=== PATIENT | female | born 1960 | race Caucasian/White ===

== ENCOUNTER → 2017-01-05 | Outpatient (CLI) | payer MEDICARE ==
--- NOTE | 2017-01-05 16:29 | CT ---
EXAM DESCRIPTION: CTA Runoff CLINICAL HISTORY: 56 years, Female, PAIN bilateral lower extremity pain and suspected claudication COMPARISON: None TECHNIQUE: Rapid bolus administration of nonionicIV contrast was performed with thin-section axial scanning of the lower abdomen, pelvis, and lower extremities was performed in a dynamic fashion. Reconstructed multiplanar and three dimensional MIP and VRT images created on a separate dedicated workstation were reviewed along with the source axial images and stored in the patient's medical record. This exam was performed according to our departmental dose-optimization program, which includes automated exposure control, adjustment of the mA and/or kV according to patient size and/or use of iterative reconstruction technique. FINDINGS: Thin section CTA of the lower abdomen pelvis and lower extremities was performed. Moderate atherosclerosis is apparent. The examination was be done just below the origin of the renal arteries with opacification satisfactorily of both kidneys but the origin of each renal artery or the mesenteric vessels not evaluated. A patent inferior mesenteric artery is present. A retroverted uterus within the pelvis is noted. Moderate surface atherosclerosis and calcification is present without aortic aneurysm both common iliac arteries and both common iliac bifurcations and both external iliac and common femoral arteries and bifurcations are widely patent without significant stenosis. Both internal iliac arteries fill well into the posterior pelvis and gluteal region. On the right superficial femoral artery and popliteal artery is widely patent to below the knee. Posterior tibial artery is patent throughout its course to the level of the plantar arch and the peroneal artery can be followed to just above the ankle mortise. A patent but very diminutive posterior tibial artery is poorly opacified but present to the level of the dorsalis pedis artery. On the left, the superficial femoral artery is patent throughout its course as well as the popliteal artery to the popliteal trifurcation with a patent posterior tibial artery to the plantar arch level and a diminutive but patent anterior tibial artery to the level of the dorsal arch of below the ankle mortise. The coronal and sagittal reformatted images are suboptimal secondary to stair stepping artifact with no additional gross abnormalities noted. IMPRESSION: 1. Moderate surface atherosclerosis and calcification involving the aorta and pelvic vessels with very little atherosclerotic calcification noted below the level of the groin on each side. 2. Nonvisualization of the renal artery origins or mesenteric artery origins other than a patent diminutive inferior mesenteric artery. 3. Patent vessels in both lower extremities to the level of the dorsal and plantar arch is with very diminutive distal anterior tibial artery and dorsalis pedis arteries on each side but patency is present and noted without areas of occlusion or severe stenosis 4. The common iliac and external iliac and femoral vessels as well as each popliteal artery and each posterior tibial artery appear widely patent. Electronically signed by: Eron Rousseau MD 01/05/2017 4:28 PM CDT
== END | disposition home or self-care (01) ==
LOC: CT 10:37
PROVIDERS: ATTEND Family Medicine
DX: I70.223 Atherosclerosis of native arteries of extremities with rest pain, bilateral legs (principal)

== ENCOUNTER 2017-04-22 18:16 | Emergency (ER) | payer MEDICARE ==
[2017-04-22] MEDS ORDERED: NITROGLYCERIN 0.4 MG 25 EA TAB SL ONE (18:24)
[2017-04-22] MEDS ORDERED: ASPIRIN TABLET 325 MG TAB PO ONE (18:24)
[2017-04-22] MEDS ORDERED: SODIUM CHLORIDE 0.9% (FLUSH) 10 ML SYG IV PRN (18:24)
[2017-04-22] MEDS ORDERED: SODIUM CHLORIDE 0.9% 1000ML 1,000 ML IVS ONE (18:59)
[2017-04-22] MEDS ORDERED: PANTOPRAZOLE SODIUM IV 40 MG VIAL IV ONE (19:08)
[2017-04-22] MEDS ORDERED: ALUM & MAG HYDROX-SIMETHICONE 30 ML, LIDOCAINE VISCOUS 2% 15 ML PO ONE ×2 (19:08)
[2017-04-22] MEDS ORDERED: IPRATROPIUM/ALBUTEROL 3 ML VIAL NEB ONE (19:10)
--- NOTE | 2017-04-22 19:11 | ED.PDOC ---
History of Present Illness - General Chief Complaint: Chest Pain/IL Stated Complaint: short of breath chest discomfort Time Seen by Provider: 04/22/17 18:21 Source: patient Exam Limitations: no limitations - History of Present Illness Initial Comments: Susan Arevalo 57 y/o female stated she had been having sharp thoracic pain the last 2 days then this afternoon while resting at home she had sharp stabbing pain epigastrium with sob,got sweaty no n/v,no dizziness. Timing/Duration: 1-3 hours Severity: moderate Location: epigastric Activities at Onset: rest Prior Chest Pain/Cardiac Workup: no prior cardiac workup Improving Factors: nothing Worsening Factors: nothing Nitro Today/Relief: 0.4 mg x 1, provided by ED Aspirin Treatment Today: 325 mg x 1, provided by ED Associated Symptoms: other - see hpi Allergies/Adverse Reactions: Allergies Fluconazole [From Diflucan] Allergy (Verified 04/22/17 18:34) Levofloxacin [From Levaquin] Allergy (Verified 04/22/17 18:34) Penicillin G Allergy (Verified 04/22/17 18:34) Home Medications: Ambulatory Orders HYDROcodone 10MG/APAP 325MG [[place] 10/325] 1 ea PO Q4H 10/31/13 Pantoprazole Tablet [Protonix] 40 mg PO ACBK 03/09/15 Albuterol Sulfate Nebs [Proventil Nebs] 2.5 mg INH TID #100 vial 03/11/15 Azithromycin Tab [Zithromax] 250 mg PO QD #5 tab 03/11/15 Tiotropium [place] Monohydrate [Spiriva Handihaler] 1 puff IN DAILY #1 cap 03/11 predniSONE [Prednisone] 10 mg PO QAM #7 tab 03/11/15 Sucralfate Tab [Carafate Tab] 1 gm PO Q6HRS #120 tab 04/22/17 Review of Systems - Review of Systems Constitutional: States: no symptoms reported EENTM: States: no symptoms reported Respiratory: States: see HPI Cardiology: States: see HPI Gastrointestinal/Abdominal: States: no symptoms reported Musculoskeletal: States: no symptoms reported Skin: States: no symptoms reported Neurological: States: no symptoms reported Past Medical History (General) - Patient Medical History Hx Seizures: No Hx Stroke: No Hx Asthma: No Hx of COPD: Yes Hx Cardiac Disorders: Yes Hx Congestive Heart Failure: No Hx Pacemaker: No Hx Hypertension: No Hx Diabetes: No Hx Gastroesophageal Reflux: Yes Hx MRSA: No Hx Other PMH: Yes - gastric ulcer Surgical History: cholecystectomy, other - gastic surgery for gastric ulcer - Vaccination History Hx Tetanus, Diphtheria Vaccination: No Hx Influenza Vaccination: Yes Hx Pneumococcal Vaccination: No - Social History Hx Tobacco Use: Yes Hx Alcohol Use: No Hx Substance Use: No Hx Physical Abuse: No Hx Emotional Abuse: No - Female History Patient is a Female of Child Bearing Age (10 -59 yrs old): No Patient : No Family Medical History - Family History Father Living Status: Age at (years of age): 61 Cause of : Lung Disease H2S gas Mother Age (years): 73 Living Status: Still Living Hx Family Hypertension: Yes Hx Family Diabetes: Yes Physical Exam - Physical Exam General Appearance: Alert, Anxious, No apparent distress Eyes, Ears, Nose, Throat Exam: PERRL/EOMI, normal ENT inspection, pharynx normal Neck: non-tender, full range of motion, supple Respiratory: chest non-tender, no respiratory distress, no accessory muscle use , wheezing Cardiovascular/Chest: normal peripheral pulses, regular rate, rhythm, no murmur Peripheral Pulses: radial,right: 2+, radial,left: 2+ Gastrointestinal/Abdominal: normal bowel sounds, non tender, soft, no organomegaly Extremity: normal range of motion, non-tender, no calf tenderness, pedal edema - +1 both legs Neurologic: alert, normal mood/affect, oriented x 3 Skin Exam: normal color, warm/dry Lymphatic: no adenopathy Progress - Progress Progress: 04/22/17 21:13 Last Vital Signs Temp 97.9 F 04/22/17 18:27 Pulse 89 04/22/17 20:40 Resp 18 04/22/17 20:40 BP 106/71 04/22/17 18:27 Pulse Ox 96 04/22/17 20:40 - Results/Orders Results/Orders: Laboratory Tests 04/22/17 04/22/17 04/22/17 18:29 18:29 19:11 WBC 7.3 RBC 5.17 Hgb 17.9 H Hct 51.8 H MCV 100.1 H MCH 34.6 H MCHC 34.5 RDW 13.1 Plt Count 190 MPV 7.4 Absolute Neuts (auto) 5.30 Absolute Lymphs (auto) 1.00 Absolute Monos (auto) 0.80 Absolute Eos (auto) 0.10 Absolute Basos (auto) 0.10 Neutrophils % 73.2 Lymphocytes % 14.0 L Monocytes % 11.3 H Eosinophils % 0.8 L Basophils % 0.7 PT 12.2 INR 1.080 PTT (SP) 34.6 D-Dimer, Quantitative < 200 Sodium 127 L Potassium 3.1 L Chloride 87 L Carbon Dioxide 30 Anion Gap 13.1 BUN 10 Creatinine 0.59 L BUN/Creatinine Ratio 16.9 Random Glucose 115 H Serum Osmolality 255.2 L Calcium 9.0 Magnesium 1.8 Total Bilirubin 0.4 Direct Bilirubin < 0.1 Indirect Bilirubin 0.3 AST 28 ALT 15 Alkaline Phosphatase 73 Creatine Kinase 51 CK-MB (CK-2) 2.0 CK-MB (CK-2) % Not Reportable Troponin I < 0.02 B-Natriuretic Peptide 6.3 Serum Total Protein 7.2 Albumin 4.2 Lipase 24 chest pains almost gone and discuss hospital admission that no telemetry bed here that she needs to be transferred to [facility] but declined to go there and wants to follow up with her primary Md in am 04/23/2017 - EKG/XRAY/CT EKG: Sinus Comments: HR-87;right atrial enlargement XRAY: chest - no acute abnormalities - Additional EKG/XRAY/Consults EKG #2: Sinus Comments: heart rate-83 Departure - Departure Clinical Impression: Chest pain Qualifiers: Chest pain type: unspecified Qualified Code(s): R07.9 - Chest pain, unspecified Time of Disposition: 23:48 Disposition: Discharge to Home or Self Care Condition: Fair Departure Forms: ED Discharge - Pt. Copy, Patient Portal Self Enrollment Instructions: DI for Chest Pain Referrals: Richard Dasilva MD [Primary Care Provider] - 1-2 Weeks Prescriptions: Sucralfate Tab [Carafate Tab] 1 gm PO Q6HRS #120 tab Home Medications: Ambulatory Orders HYDROcodone 10MG/APAP 325MG [[place] 10/325] 1 ea PO Q4H 10/31/13 Pantoprazole Tablet [Protonix] 40 mg PO ACBK 03/09/15 Albuterol Sulfate Nebs [Proventil Nebs] 2.5 mg INH TID #100 vial 03/11/15 Azithromycin Tab [Zithromax] 250 mg PO QD #5 tab 03/11/15 Tiotropium [place] Monohydrate [Spiriva Handihaler] 1 puff IN DAILY #1 cap 03/11 predniSONE [Prednisone] 10 mg PO QAM #7 tab 03/11/15 Sucralfate Tab [Carafate Tab] 1 gm PO Q6HRS #120 tab 04/22/17 Additional Instructions: RETURN TO EMERGENCY ROOM IF SYMPTOMS WORSENS;Follow up with primary md in am
[2017-04-22] MEDS ORDERED: LIDOCAINE HCL 2% (MOUTH-THROAT) 15 ML UD ONE (19:13)
[2017-04-22] MEDS ORDERED: ALUM & MAG HYDROX-SIMETHICONE 30 ML UD ONE (19:16)
--- NOTE | 2017-04-22 20:27 | RAD ---
EXAM DESCRIPTION: Chest,1 View CLINICAL HISTORY: pain COMPARISON: 03/11/2015 FINDINGS: 22 mm mass in the right lung is again seen, not definitely changed. Cardiac silhouette is within normal limits. There is no focal parenchymal or pleural disease. Visualized osseous structures are within normal limits. IMPRESSION: No evidence of acute cardiopulmonary disease. Right lung mass lesion is again seen. 04/22/2017 8:26 PM [employer] D[employer] QUALIFIED
--- NOTE | 2017-04-22 20:28 | RAD ---
EXAM DESCRIPTION: Chest,1 View CLINICAL HISTORY: pain COMPARISON: 03/11/2015 FINDINGS: 22 mm mass in the right lung is again seen, not definitely changed. Cardiac silhouette is within normal limits. There is no focal parenchymal or pleural disease. Visualized osseous structures are within normal limits. IMPRESSION: No evidence of acute cardiopulmonary disease. Right lung mass lesion is again seen. Electronically signed by: Saul Poe 04/22/2017 8:27 PM WEB DEVELOPMENT DIRECTOR
[2017-04-22] MEDS ORDERED: SUCRALFATE 1 GM/10 ML 1 GM UD PO ONE (23:02)
[2017-04-23 00:32] VITALS: O2SAT 94
[2017-04-23 01:26] VITALS: BP 137/94; TEMP 99.2
== END 2017-04-23 00:10 | disposition home or self-care (01) ==
LOC: ER 18:16
DX: R07.9 Chest pain, unspecified (principal); J44.9 Chronic obstructive pulmonary disease, unspecified; K21.9 Gastro-esophageal reflux disease without esophagitis; Z79.899 Other long term (current) drug therapy
CPT/HCPCS: 36415; 71010; 80048; 80076; 82550; 82553; 83690; 83880; 84484; 85025; 85379; 85610; 85730; 93005; 94640; 94760; J7030; J7620

== ENCOUNTER → 2017-11-09 | Outpatient (CLI) | payer MEDICARE | LOC: GMAH 17:26 | PROVIDERS: ATTEND Family Medicine | DX: R50.9 Fever, unspecified (principal) ==

== ENCOUNTER 2018-03-18 12:45 | Inpatient (IN) | payer MEDICARE ==
--- NOTE | 2018-03-18 12:53 | HP ---
SUPERVISING PHYSICIAN: Geo Gonzalez M.D. CHIEF COMPLAINT: Shortness of breath. HISTORY OF PRESENT ILLNESS: This is a 58 year-old female patient who was seen in her primary care physician's office, Dr. Richard Dasilva, approximately 2 weeks ago. She had upper respiratory symptoms. She has a longstanding history of chronic obstructive pulmonary disease. At that time she was treated with Amoxicillin and a prednisone taper. She completed her medications this weekend and on Thursday and Thursday she felt somewhat better, but on Thursday she started feeling very poorly again. She came back to see Dr. Dasilva this morning. Her O2 sats were in the mid 80s, blood pressure 104/60, heart rate 118. She was afebrile but on her CBC she had a 24,800 white count. Chest x- ray showed right perihilar infiltrate. She does also have a history of a pulmonary nodule that has been evaluated but she has opted for no treatment. Dr. Dasilva called me for her admission to the hospital and she is being directly admitted to the Medical/Surgical unit at our hospital. PAST MEDICAL HISTORY: 1. Sleep apnea. 2. Low back pain. 3. Chronic obstructive pulmonary disease. 4. Chronic pain syndrome. 5. Gastroesophageal reflux disease. 6. Pulmonary nodule. 7. Rheumatoid arthritis. PAST SURGICAL HISTORY: Unknown. CURRENT MEDICATIONS: Per the EMR and awaiting verification. ALLERGIES: FLUCONAZOLE, LEVOFLOXACIN AND PENICILLIN G, THE INJECTABLE TYPE. SOCIAL HISTORY: She lives in [place]. She smokes a pack of cigarette per day and has since she was in her teens. She denies any ETOH or illicit drug use. REVIEW OF SYSTEMS: Positive for chills and fever. Negative for weight changes. HEENT: Positive for eye drainage. Negative for ear pain, sore throat or sinus symptoms. RESPIRATORY: Positive for cough, wheezing and shortness of breath. CARDIOVASCULAR: Negative for chest pain, palpitations or tachycardia. GASTROINTESTINAL: Negative for abdominal pain, constipation, diarrhea, nausea or vomiting. GENITOURINARY: Negative for hematuria, dysuria or polyuria. MUSCULOSKELETAL: Negative for arthralgias or myalgias. SKIN: Negative for lesions or rashes. NEUROLOGIC: Negative for headaches, dizziness or seizures. PHYSICAL EXAMINATION: VITAL SIGNS: Temperature 99, heart rate 113, blood pressure 107/73, respiratory rate 19, O2 sat 93% on room air. GENERAL: This is a 58 year-old female patient who looks older than her stated age. She does have a strong tobacco odor on her. HEENT: Normocephalic and atraumatic. Pupils are equal and reactive. Oropharynx is clear. NECK: Supple without mass. RESPIRATORY: Expiratory wheezes throughout. She is diminished at the bases. She does have scattered rhonchi. CHEST: There is equal rise and fall of the chest with inspiration and expiration. She is tachypneic at times. CARDIOVASCULAR: Regular rate and rhythm. She is at times tachycardic. GASTROINTESTINAL: Abdomen is soft, nondistended, non-tender. Bowel sounds are positive. EXTREMITIES: No clubbing, cyanosis or edema. NEUROLOGIC: She is awake, alert and oriented times three but she is very tearful and somewhat depressed. LABORATORY: Labs and films are as per the History of Present Illness. CMP has not been resulted yet. All other labs and films have been reviewed via the EMR. ASSESSMENT: 1. Sepsis related to right perihilar pneumonia most likely community acquired with a leukocytosis of 24,800 and heart rate of 113. She has failed outpatient therapy. 2. Chronic obstructive pulmonary disease with acute exacerbation in a chronic smoker, also failing outpatient therapy. 3. Leukocytosis secondary to #1. 4. Chronic tobacco abuse. 5. Anxiety. 6. History of rheumatoid arthritis on chronic opioid therapy. 7. Gastroesophageal reflux disease. PLAN: We will admit the patient to the hospital under the pneumonia guidelines. She will have aggressive pulmonary hygiene. She will have Mucinex scheduled as well as Xanax for anxiety p.r.n. I have given her a nicotine patch. She will have a PPI for ulcer prophylaxis with Lovenox for DVT prophylaxis. I will restart her home medications as soon as they are verified. We are awaiting the CMP today and I will recheck her labs and chest x-ray in the morning. I will start her on azithromycin and Rocephin per the pneumonia guidelines. She will also be on an IV steroid taper. Will continue to monitor closely and follow as needed. #[id number] [facility]
[2018-03-18] MEDS: AZITHROMYCIN IV 500 MG in SODIUM CHLORIDE 0.9% 250ML 250 ML IVPB SCH (13:10)
[2018-03-18] MEDS ORDERED: ONDANSETRON INJ 4 MG/2 ML VIAL IV PRN (13:11)
[2018-03-18] MEDS ORDERED: ALBUTEROL SULFATE 2.5 MG/3 ML VIAL NEB PRN (13:11)
[2018-03-18] MEDS ORDERED: methylPREDNISolone SODIUM SUC 125 MG/2 ML VIAL IV ONE (13:16)
[2018-03-18] MEDS: IPRATROPIUM/ALBUTEROL 3 ML VIAL INH SCH ×3 (13:47→20:32)
[2018-03-18] MEDS ORDERED: ALPRAZolam 0.25 MG TAB PO PRN (14:04)
[2018-03-18] MEDS ORDERED: SODIUM CHL 0.9% 50ML MIN-BAG+ 50 ML IVPB ONE (14:32)
[2018-03-18] MEDS ORDERED: cefTRIAXone SODIUM 1 GM VIAL ONE (14:32)
[2018-03-18] MEDS: guaiFENesin ER TAB 600 MG TAB PO SCH ×2 (14:42→20:39)
[2018-03-18] MEDS: NICOTINE PATCH 14 MG TD SCH (14:43)
[2018-03-18] MEDS: cefTRIAXone SODIUM 1 GM in SODIUM CHL 0.9% 50ML MIN-BAG+ 50 ML IVPB SCH (14:57)
[2018-03-18] MEDS: IV SET AND CAP CHANGE INJ INJ SCH (14:58)
[2018-03-18] MEDS ORDERED: SODIUM CHLORIDE 0.9% 250ML 250 ML ONE (16:02)
[2018-03-18] MEDS ORDERED: AZITHROMYCIN IV 500 MG VIAL IVPB ONE (16:02)
[2018-03-18] MEDS: HYDROcodone 10MG/APAP 325MG 1 EA TAB PO SCH ×2 (18:11→21:37)
[2018-03-18] MEDS ORDERED: methylPREDNISolone SODIUM SUC 125 MG/2 ML VIAL ONE (19:10)
[2018-03-18] MEDS: ENOXAPARIN SODIUM 40 MG/0.4 ML SYG SUBCU SCH (20:38)
[2018-03-18] MEDS: PREGABALIN 25 MG CAP PO SCH (20:38)
[2018-03-18] MEDS: SODIUM CHLORIDE 0.9% (FLUSH) 10 ML SYG IV SCH (20:39)
[2018-03-18] MEDS: SODIUM CHLORIDE 0.9% (FLUSH) 10 ML SYG IV PRN (21:38)
[2018-03-18] MEDS: methylPREDNISolone SODIUM SUC 125 MG/2 ML VIAL IV SCH (21:38)
[2018-03-19] MEDS: HYDROcodone 10MG/APAP 325MG 1 EA TAB PO SCH ×6 (01:48→22:07)
[2018-03-19] MEDS ORDERED: PANTOPRAZOLE SODIUM IV 40 MG VIAL ONE (04:24)
[2018-03-19] MEDS: SODIUM CHLORIDE 0.9% (FLUSH) 10 ML SYG IV PRN (05:50)
[2018-03-19] MEDS: methylPREDNISolone SODIUM SUC 125 MG/2 ML VIAL IV SCH (05:50)
[2018-03-19] MEDS ORDERED: PANTOPRAZOLE SODIUM IV 40 MG VIAL IV SCH (06:30)
--- NOTE | 2018-03-19 06:49 | RAD ---
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 There is developing right middle lobe opacity consistent with developing pneumonia. Emphysematous changes of the lungs are noted. Heart is within normal limits for size. IMPRESSION: Developing right middle lobe pneumonia. Electronically signed by: Aniket Da Silva 03/19/2018 6:48 AM [facility]
[2018-03-19] MEDS: IPRATROPIUM/ALBUTEROL 3 ML VIAL INH SCH ×4 (07:15→20:48)
[2018-03-19] MEDS: PREGABALIN 25 MG CAP PO SCH ×2 (08:02→20:37)
[2018-03-19] MEDS: NICOTINE PATCH 14 MG TD SCH (08:02)
[2018-03-19] MEDS: SODIUM CHLORIDE 0.9% (FLUSH) 10 ML SYG IV SCH ×2 (08:02→20:37)
[2018-03-19] MEDS: hydroCHLOROthiazide 25 MG TAB PO SCH (08:02)
[2018-03-19] MEDS: guaiFENesin ER TAB 600 MG TAB PO SCH ×2 (08:02→20:37)
[2018-03-19] MEDS ORDERED: SODIUM CHL 0.9% 50ML MIN-BAG+ 50 ML IVPB ONE (13:16)
[2018-03-19] MEDS ORDERED: cefTRIAXone SODIUM 1 GM VIAL ONE (13:16)
[2018-03-19] MEDS: cefTRIAXone SODIUM 1 GM in SODIUM CHL 0.9% 50ML MIN-BAG+ 50 ML IVPB SCH (13:18)
[2018-03-19] MEDS ORDERED: SODIUM CHLORIDE 0.9% 250ML 250 ML ONE (13:54)
[2018-03-19] MEDS ORDERED: AZITHROMYCIN IV 500 MG VIAL IVPB ONE (13:55)
[2018-03-19] MEDS: AZITHROMYCIN IV 500 MG in SODIUM CHLORIDE 0.9% 250ML 250 ML IVPB SCH (14:00)
[2018-03-19] MEDS ORDERED: methylPREDNISolone SODIUM SUC 40 MG/ML VIAL ONE (15:53)
[2018-03-19] MEDS ORDERED: methylPREDNISolone SODIUM SUC 40 MG/ML VIAL IV ONE (18:00)
[2018-03-19] MEDS: KCL 40MEQ/NS 1,000 ML IVS PRN (18:29)
[2018-03-19] MEDS ORDERED: MAGNESIUM SULFATE PREMIX 2GM 2 GM in PREMIX BAG 1 BAG IVPB ONE (18:55)
[2018-03-19] MEDS ORDERED: MAGNESIUM SULFATE PREMIX 2GM 50 ML IVPB ONE (19:07)
[2018-03-19] MEDS: ENOXAPARIN SODIUM 40 MG/0.4 ML SYG SUBCU SCH (20:36)
--- NOTE | 2018-03-19 21:28 | PN ---
DATE: 03/19/18 SUPERVISING PHYSICIAN: Eron Davis M.D. SUBJECTIVE: The patient notes that she is feeling a little bit better today, but she continues to be short of breath with any ambulation efforts. She still continues with a cough and purulent-looking sputum but has been afebrile since admission. No chest pains. No nausea, vomiting or diarrhea. OBJECTIVE: VITAL SIGNS: Temperature 98.4, pulse 100 to 117 with blood pressure 118/74, respirations 18, satting 89% on room air and 91 to 92% on nasal cannula at 2 liters at rest. I's and O's show a negative balance of 360 with 1340 in, 1700 out. Weight 50.4 kg. GENERAL: The patient is sitting on the edge of the bed, appears to be in no acute distress. She is alert. CHEST: Lung sounds are diminished towards the bases but no obvious wheezing, but continues with some very faint rhonchi, more so on the right than the left and more prominent on the lateral posterior aspect. HEART: Regular rate and rhythm. ABDOMEN: Soft, non-tender. Positive bowel sounds. EXTREMITIES: Without any clubbing, cyanosis or edema. NEUROLOGIC: She is alert and oriented times three. LABORATORY: White count 16,900 with hemoglobin 15.1, hematocrit 45.3, platelet count 209,000. Differential did show a left leg shift. Chemistries show a persistent low sodium of 132 and improving potassium at 3.2, creatinine 0.48 but CO2 is elevated at 33 but it has improved from admission. Chloride remains low at 90, BUN 8. Blood sugar 139. Liver functions all showed to be within normal limits. MICROBIOLOGY: Sputum culture is pending. Blood cultures are pending. RADIOLOGY: Chest x-ray this morning per radiology interpretation, 2 view chest , showed developing right middle lobe pneumonia. ASSESSMENT: 1. Sepsis due to right middle lobe pneumonia community acquired with the patient showing a leukocytosis of 24,800 and heart rate of 113 on admission having failed to respond to outpatient treatment therapy. 2. Chronic obstructive pulmonary disease with acute exacerbation in a chronic smoker secondary to developing right lower lobe pneumonia, community acquired having failed to respond to outpatient therapy. 3. Electrolyte imbalance to include both hyponatremia and hypokalemia with slight improvement with fluids. 4. Hypercapnia in a chronic smoker, COPD patient. 5. Leukocytosis secondary to #1 showing improvement. Started on parenteral antibiotics. 6. Chronic tobacco abuse and nicotine addiction. Encouraged to stop smoking. 7. Anxiety. 8. History of rheumatoid arthritis on chronic opioid therapy. 9. Gastroesophageal reflux disease, monitoring. PLAN: Will continue with treatment with antibiotics, including Rocephin and azithromycin. Continue with aggressive pulmonary hygiene. Will await culture results to further target antibiotic therapy. She remains on nicotine patch. She continues on IV fluids. When she is showing better oral intake and and I's and O's are more balanced, will saline lock her at that point. Will plan to repeat labs in the morning to include CBC, BMP as well as chest x-ray. She continues on IV steroids. She was started on 60 mg every 8 hours. This will be decreased to 40 mg every 12 hours with anticipation of starting on p.o. dose of prednisone in the morning. Until the patient is able to transition to outpatient therapy, will continue to monitor and treat as needed. #[id number] [facility]
[2018-03-20] MEDS: HYDROcodone 10MG/APAP 325MG 1 EA TAB PO SCH ×6 (01:57→21:42)
[2018-03-20] MEDS: KCL 40MEQ/NS 1,000 ML IVS PRN (04:18)
[2018-03-20] MEDS ORDERED: PANTOPRAZOLE SODIUM TAB 40 MG PO ONE (04:51)
[2018-03-20] MEDS: PANTOPRAZOLE SODIUM TAB 40 MG PO SCH (07:18)
[2018-03-20] MEDS: IPRATROPIUM/ALBUTEROL 3 ML VIAL INH SCH ×4 (07:40→20:40)
[2018-03-20] MEDS: hydroCHLOROthiazide 25 MG TAB PO SCH (08:58)
[2018-03-20] MEDS: guaiFENesin ER TAB 600 MG TAB PO SCH ×2 (08:58→20:37)
[2018-03-20] MEDS: NICOTINE PATCH 14 MG TD SCH (08:58)
[2018-03-20] MEDS ORDERED: SODIUM CHLORIDE 0.9% (FLUSH) 10 ML SYG IV ONE (10:58)
[2018-03-20] MEDS: predniSONE 20 MG TAB PO SCH (11:38)
[2018-03-20] MEDS ORDERED: SODIUM CHL 0.9% 50ML MIN-BAG+ 50 ML IVPB ONE (14:27)
[2018-03-20] MEDS ORDERED: SODIUM CHLORIDE 0.9% 250ML 250 ML ONE (14:27)
[2018-03-20] MEDS ORDERED: cefTRIAXone SODIUM 1 GM VIAL ONE (14:27)
[2018-03-20] MEDS ORDERED: AZITHROMYCIN IV 500 MG VIAL IVPB ONE (14:28)
[2018-03-20] MEDS: cefTRIAXone SODIUM 1 GM in SODIUM CHL 0.9% 50ML MIN-BAG+ 50 ML IVPB SCH (14:37)
[2018-03-20] MEDS: AZITHROMYCIN IV 500 MG in SODIUM CHLORIDE 0.9% 250ML 250 ML IVPB SCH (15:13)
--- NOTE | 2018-03-20 18:39 | PN ---
DATE: 03/20/18 SUPERVISING PHYSICIAN: Eron Davis M.D. SUBJECTIVE: The patient notes that she has improved a little bit. Continues with some shortness of breath but not wheezing. She has been ambulating, able to ambulate at times without needing oxygen and maintaining O2 saturations at least at 90%. She has had no chest pains, no nausea or vomiting or diarrhea. OBJECTIVE: VITAL SIGNS: She remains afebrile, temperature 98.2, pulse 95, blood pressure 98/67, respirations 18, satting 94% on room air. I's and O's show a positive balance of 520 with 2870 in, 2350 out. Weight 50.8 kg. GENERAL : The patient is alert. She appears to be in no acute distress. CHEST: Lung sounds are fairly clear today, just diminished towards the bases. No wheezing or rhonchi are noted. HEART: Regular rate and rhythm. ABDOMEN: Soft, non- tender. Positive bowel sounds. EXTREMITIES: Without any clubbing, cyanosis or edema. NEUROLOGIC: She is alert and oriented times three. LABORATORY: White count remains elevated at 16,600, although she has been on corticosteroids. Hemoglobin and hematocrit are stable at 14.3 and 43.0 respectively with platelet count 219,000. Differential continues to show a left shift. Chemistries now show normalized potassium at 4.3. Sodium remains at 132, BUN 9, creatinine 0.52, calcium 8.5, magnesium is up to 2.2 after replacement. MICROBIOLOGY: Sputum culture is pending. Blood cultures remain negative at 48 hours. RADIOLOGY: No repeat chest x-ray this morning. ASSESSMENT: 1. Sepsis due to right middle lobe pneumonia community acquired with the patient showing a severe leukocytosis prior to admission at 24,800 and tachycardic at 113 and having failed to respond to previous outpatient treatment measures now showing improvement with parenteral antibiotics and corticosteroids. 2. Chronic obstructive pulmonary disease with acute exacerbation in a chronic smoker with a right lower lobe pneumonia, community acquired having failed to respond to outpatient measures showing improvement with initiation of parenteral antibiotics and corticosteroids, and aggressive pulmonary hygiene. 3. Electrolyte imbalance with both hyponatremia and hypokalemia likely with the patient being chronically hyponatremic as she is on Hydrochlorothiazide with notable hypokalemia now corrected after correcting hypomagnesemia with replacement which has normalized. 4. Hypercapnia in a chronic smoker and COPD patient. 5. Leukocytosis secondary to #1 showing slight improvement but continues to be elevated as the patient remains on corticosteroids and parenteral antibiotics. 6. Chronic tobacco abuse with nicotine addiction, continue to encourage to stop smoking. 7. Anxiety, monitoring. 8. History of rheumatoid arthritis on chronic opioid therapy. Continue to monitor. 9. Gastroesophageal reflux disease, stable and monitoring. PLAN: Will continue with current plan at this point with Rocephin and azithromycin with anticipation of probably discharging tomorrow. Given that the patient is a heavy smoker and has a significant degree of COPD, it would be in her best interest that we keep her at least another 24 hours to allow for more aggressive management as well as transition her to p.o. steroids. Should she show continued clinical improvement, certainly will discharge tomorrow and followup with Dr. Dasilva next week. She is going to be saline locked today and I have transitioned her to p.o. prednisone 40 mg daily. Until she can transition to outpatient management, will continue to monitor and treat as needed. #[id number] [facility]
[2018-03-20] MEDS: ENOXAPARIN SODIUM 40 MG/0.4 ML SYG SUBCU SCH (20:36)
[2018-03-20] MEDS: PREGABALIN 25 MG CAP PO SCH (20:37)
[2018-03-20] MEDS: SODIUM CHLORIDE 0.9% (FLUSH) 10 ML SYG IV SCH (20:37)
[2018-03-21] MEDS: HYDROcodone 10MG/APAP 325MG 1 EA TAB PO SCH ×4 (02:02→13:32)
[2018-03-21] MEDS: PANTOPRAZOLE SODIUM TAB 40 MG PO SCH (06:32)
--- NOTE | 2018-03-21 07:32 | RAD ---
EXAM DESCRIPTION: AP view of the chest CLINICAL HISTORY:58 years Female, pneumonia Comparison: March 19, 2018 5:53 AM FINDINGS: Stable right lower lobe nodular density, likely benign. Persistent alveolar opacities in the middle lobe consistent with pneumonia. The left lung is clear with no pleural abnormalities. Cardiac silhouette is normal in size. IMPRESSION: Right lower lobe pneumonia. No significant change from prior exam. Electronically signed by: Luis Carlos Valle DO 03/21/2018 7:31 AM [facility]
[2018-03-21] MEDS: IPRATROPIUM/ALBUTEROL 3 ML VIAL INH SCH ×2 (08:25→12:24)
[2018-03-21] MEDS: NICOTINE PATCH 14 MG TD SCH (08:36)
[2018-03-21] MEDS: guaiFENesin ER TAB 600 MG TAB PO SCH (08:36)
[2018-03-21] MEDS: hydroCHLOROthiazide 25 MG TAB PO SCH (08:36)
[2018-03-21] MEDS: predniSONE 20 MG TAB PO SCH (08:37)
[2018-03-21] MEDS: SODIUM CHLORIDE 0.9% (FLUSH) 10 ML SYG IV SCH (08:48)
[2018-03-21] MEDS ORDERED: SODIUM CHLORIDE 0.9% 250ML 250 ML ONE (10:27)
[2018-03-21] MEDS ORDERED: AZITHROMYCIN IV 500 MG VIAL IVPB ONE (10:27)
[2018-03-21] MEDS: AZITHROMYCIN IV 500 MG in SODIUM CHLORIDE 0.9% 250ML 250 ML IVPB SCH ×2 (10:35→13:35)
[2018-03-21] MEDS ORDERED: NYSTATIN SUSPENSION 5 ML UD MT SCH (13:00)
[2018-03-21] MEDS: cefTRIAXone SODIUM 1 GM in SODIUM CHL 0.9% 50ML MIN-BAG+ 50 ML IVPB SCH (13:30)
[2018-03-21] MEDS: IV SET AND CAP CHANGE INJ INJ SCH (13:34)
[2018-03-21 13:49] VITALS: BP 98/66; TEMP 98.1; O2SAT 91
--- NOTE | 2018-03-21 18:10 | DS ---
SUPERVISING PHYSICIAN: Eron Davis M.D. DISCHARGE DIAGNOSIS: 1. Sepsis due to right middle lobe pneumonia community acquired with the patient showing a severe leukocytosis prior to admission at 24,800 and tachycardic at 113 and having failed to respond to previous outpatient treatment measures now showing improvement with parenteral antibiotics and corticosteroids. 2. Chronic obstructive pulmonary disease with acute exacerbation in a chronic smoker with a right lower lobe pneumonia, community acquired having failed to respond to outpatient measures showing improvement with initiation of parenteral antibiotics and corticosteroids, and aggressive pulmonary hygiene. 3. Electrolyte imbalance with both hyponatremia and hypokalemia likely with the patient being chronically hyponatremic as she is on Hydrochlorothiazide with notable hypokalemia now corrected after correcting hypomagnesemia with replacement which has normalized. 4. Hypercapnia in a chronic smoker and COPD patient. 5. Leukocytosis secondary to #1 showing slight improvement but continues to be elevated as the patient remains on corticosteroids and parenteral antibiotics. 6. Chronic tobacco abuse with nicotine addiction, continue to encourage to stop smoking. 7. Anxiety, monitoring. 8. History of rheumatoid arthritis on chronic opioid therapy. Continue to monitor. 9. Gastroesophageal reflux disease, stable and monitoring. 10. Thrush of the oral cavity. HISTORY OF PRESENT ILLNESS: This is a 58 year-old female patient who was seen in her primary care physician's office, Dr. Richard Dasilva, approximately 2 weeks ago. She had an upper respiratory infection at that time. She has a longstanding history of chronic obstructive pulmonary disease. At that time she was treated with Amoxicillin and a prednisone taper. She completed her medications the weekend prior to admission and actually felt better on Thursday and Thursday she felt somewhat better, but on Thursday she felt like she was getting sick again. She came back to see Dr. Dasilva. Her sats were in the mid 80s, blood pressure 104/60, heart rate 118. She was afebrile but on her CBC she had a 24,800 white count. Chest x-ray showed right perihilar infiltrate. She has a history of a pulmonary nodule that has been evaluated but she has opted for no treatment. Dr. Dasilva called me and asked that she be a direct admission to the hospital. HOSPITAL COURSE: The patient was brought to the hospital. Her sodium was slightly low at 132 with potassium of 3, chloride 89, carbon dioxide was 34. Liver functions were within normal limits. She was given Rocephin and azithromycin IV. She was also put on a PPI for ulcer prophylaxis and Lovenox for DVT prophylaxis. She was given aggressive pulmonary hygiene. The pneumonia guidelines were followed. She was also put on an IV Solu-Medrol taper. Chest x-ray today shows right lower lobe pneumonia with no significant change, but the patient's clinical picture is much improved. She has been walking in the hallways. Today her sodium was 137 with potassium 4.8, chloride 97, carbon dioxide 34, but she is a chronic smoker. WBCs have improved to 11, 200, although she has been on steroids. She still has a slight left shift on her differential. Sputum culture is still pending. Gram stain is pending. Preliminary blood cultures show no growth after 48 hours. She also was given a nicotine patch while she was here and instructed to stop smoking. Today, she complained of some irritation in her mouth that looks to be a thrush and I have started her on some Nystatin. Her vital signs have been stable. She has been afebrile for 48 hours. Heart rate has run between 74 and 104 over the last 24 to 48 hours. Blood pressure is stable. Respiratory rate has been between 18 and 20. Occasionally she does desaturate down to the upper 80s and low 90s, but for the most part she has been in the low 90s. She will be discharged home in stable condition. DISCHARGE PLAN: She will be discharged home in stable condition. She is to resume her previous diet. It has been recommended that she stop smoking and to increase her activity as tolerated. She needs to call her PCP's office, Dr. Richard Dasilva, and make an appointment for a hospital followup within the next 2 weeks. When she sees Dr. Dasilva, it may be advisable for them to review her sputum culture with gram stain as those are still preliminary results and we do not have the final results. In addition to her home medications, I have sent her home on Cefdinir times 7 days, Guaifenesin to be taken twice daily, Nystatin suspension for her thrush, and oral prednisone taper. The patient has been instructed to use her oxygen at home at least for the next 2 weeks or so as well as continuing her breathing treatments. She is to return to the hospital or followup with Dr. Dasilva's office for any problems or complications. DISCHARGE MEDICATIONS: 1. Hydrocodone. 2. Pantoprazole. 3. Albuterol. 4. Lyrica. 5. Multivitamins. 6. Hydrochlorothiazide. 7. Vitamin C. 8. Guaifenesin. 9. Nystatin. 10. Prednisone taper. #[id number] ADDENDUM: Sputum culture received. It was positive for S. Pneumoniae. Culture was sensitive to Bactrim DS and Rx was sent to [facility] and message left on her voicemail. [facility]
== END 2018-03-21 14:30 | disposition home or self-care (01) | DRG 871 ==
LOC: MS 12:45
PROVIDERS: ADMIT Nurse Practitioner Acute Care; ATTEND Nurse Practitioner Acute Care
DX: A40.3 Sepsis due to Streptococcus pneumoniae (principal); J13 Pneumonia due to Streptococcus pneumoniae; J44.0 Chronic obstructive pulmonary disease with (acute) lower respiratory infection; J44.1 Chronic obstructive pulmonary disease with (acute) exacerbation; E87.1 Hypo-osmolality and hyponatremia; B37.0 Candidal stomatitis; F17.210 Nicotine dependence, cigarettes, uncomplicated; E87.6 Hypokalemia; R06.89 Other abnormalities of breathing; F41.9 Anxiety disorder, unspecified; M06.9 Rheumatoid arthritis, unspecified; K21.9 Gastro-esophageal reflux disease without esophagitis; R91.1 Solitary pulmonary nodule; G47.30 Sleep apnea, unspecified; G89.4 Chronic pain syndrome; Z88.0 Allergy status to penicillin; Z88.8 Allergy status to other drugs, medicaments and biological substances

== ENCOUNTER 2018-03-29 18:52 | Emergency (ER) | payer MEDICARE ==
[2018-03-29 20:35] VITALS: TEMP 98.6
--- NOTE | 2018-03-29 20:42 | ED.PDOC ---
History of Present Illness - General Chief Complaint: General Stated Complaint: feeling weak, doesn't feel good Time Seen by Provider: 03/29/18 20:24 Source: patient Exam Limitations: no limitations - History of Present Illness Initial Comments: Susan Arevalo 58 y/o female stated that she was hospitalized for PNA ! 1/2 weeks ago and was discharge home on po Bactrim,prednisone and mucolytics.Stated feels a little better after discharge but the last 2 days felt weak again. Stated no fever or chills ,mild non productive cough. Timing/Duration: 1 week Severity: moderate Improving Factors: nothing Worsening Factors: nothing Associated Symptoms: loss of appetite, malaise, other - see hpi Allergies/Adverse Reactions: Allergies Fluconazole [From Diflucan] Allergy (Verified 04/22/17 18:34) Levofloxacin [From Levaquin] Allergy (Verified 04/22/17 18:34) Penicillin G Allergy (Verified 04/22/17 18:34) Home Medications: Ambulatory Orders HYDROcodone 10MG/APAP 325MG [[place] 10/325] 1 ea PO Q4H 10/31/13 Pantoprazole Tablet [Protonix] 40 mg PO ACBK 03/09/15 Albuterol Sulfate Nebs [Proventil Nebs] 2.5 mg INH DAILY 03/18/18 Ascorbic Acid [Vitamin C] 500 mg PO BEDTIME 03/18/18 Hydrochlorothiazide 25 mg PO DAILY 03/18/18 Multiple Vitamins W/ Minerals [Womens Multi] 1 cap PO BEDTIME 03/18/18 Pregabalin [Lyrica] 50 mg PO BEDTIME 03/18/18 Cefdinir 300 mg PO BID #14 capsule 03/21/18 Nystatin Suspension 5 ml MT QID #40 ud 03/21/18 Prednisone See Taper PO DAILY #30 tab 03/21/18 guaiFENesin ER TAB [Mucinex Tab] 1,200 mg PO BID #60 tab 03/21/18 Sulfa/Trimeth 800/160 (Ds) Tab [Bactrim DS] 1 tablet PO BID #14 tab 03/23/18 Review of Systems - Review of Systems Constitutional: States: malaise EENTM: States: no symptoms reported Respiratory: States: see HPI Cardiology: States: no symptoms reported Gastrointestinal/Abdominal: States: no symptoms reported Genitourinary: States: no symptoms reported Musculoskeletal: States: no symptoms reported Skin: States: no symptoms reported Past Medical History (General) - Patient Medical History Hx Seizures: No Hx Stroke: No Hx Dementia: No Hx Asthma: No Hx of COPD: Yes Hx Cardiac Disorders: No Hx Congestive Heart Failure: No Hx Pacemaker: No Hx Hypertension: No Hx Thyroid Disease: No Hx Diabetes: No Hx Gastroesophageal Reflux: Yes Hx Renal Disease: No Hx Cancer: No Hx of HIV: No Hx Hepatitis C: No Hx MRSA: No Hx Other PMH: Yes - gastric ulcer Surgical History: cholecystectomy, other - gastric surgery - Vaccination History Hx Tetanus, Diphtheria Vaccination: No Hx Influenza Vaccination: Yes Hx Pneumococcal Vaccination: No - Social History Hx Tobacco Use: Yes Hx Alcohol Use: No Hx Substance Use: No Hx Physical Abuse: No Hx Emotional Abuse: No - Activities of Daily Living Grooming Ability: Independent Eating (Feeding) Ability: Independent Toileting Ability: Independent - Female History Patient : No Family Medical History - Family History Father Living Status: Age at (years of age): 61 Cause of : Lung Disease H2S gas Mother Age (years): 73 Living Status: Still Living Hx Family Hypertension: Yes Hx Family Diabetes: Yes Physical Exam - Physical Exam General Appearance: Alert, Comfortable, No apparent distress Eye Exam: bilateral normal Ears, Nose, Throat: hearing grossly normal, normal ENT inspection, normal pharynx Neck: non-tender, full range of motion, supple, normal inspection Respiratory: chest non-tender, no respiratory distress, decreased breath sounds Cardiovascular/Chest: normal peripheral pulses, regular rate, rhythm, no murmur Peripheral Pulses: radial,right: 2+, radial,left: 2+ Gastrointestinal/Abdominal: soft, no organomegaly, tenderness - abdomen;no peritoneal signs Extremity: non-tender, no pedal edema, no calf tenderness Skin Exam: normal color, warm/dry Progress - Progress Progress: 03/29/18 20:45 Vital Signs - 8 hr 03/29/18 20:00 Temperature 98.6 F Pulse Rate [ 101 H monitor] Respiratory 16 Rate Blood Pressure 112/79 [Left Arm] O2 Sat by Pulse 99 Oximetry 03/29/18 23:03 Discuss all test result with patient and given discharge instruction - Results/Orders Results/Orders: 03/29/18 20:35 IV Care:Saline Lock per Protoc QSHIFT Laboratory Results - last 24 hr 03/29/18 03/29/18 03/29/18 21:11 21:11 21:11 WBC 16.5 H RBC 4.81 Hgb 16.5 H Hct 48.5 H MCV 100.8 H MCH 34.3 H MCHC 34.0 RDW 13.8 Plt Count 349 MPV 6.8 L Absolute Neuts (auto) 15.10 H Absolute Lymphs (auto) 0.70 L Absolute Monos (auto) 0.70 Absolute Eos (auto) 0.00 Absolute Basos (auto) 0.10 Neutrophils % 91.3 H Lymphocytes % 4.1 L Monocytes % 4.0 Eosinophils % 0.0 L Basophils % 0.6 PT 10.1 INR 1.01 PTT (SP) 22.7 D-Dimer, Quantitative < 0.19 Sodium 131 L Potassium 3.7 Chloride 91 L Carbon Dioxide 31 Anion Gap 12.7 BUN 11 Creatinine 0.63 BUN/Creatinine Ratio 17.5 Random Glucose 129 H Serum Osmolality 263.8 L Lactic Acid 1.0 Calcium 9.3 Magnesium 1.9 Total Bilirubin 0.5 Direct Bilirubin 0.1 Indirect Bilirubin 0.4 AST 16 ALT 18 Alkaline Phosphatase 56 Creatine Kinase 18 L CK-MB (CK-2) 2.5 CK-MB (CK-2) % Not Reportable Troponin I < 0.02 B-Natriuretic Peptide 8.7 Serum Total Protein 6.9 Albumin 4.1 Urine Color Urine Appearance Urine pH Ur Specific Joanna Urine Protein Urine Glucose (UA) Urine Ketones Urine Blood Urine Nitrite Urine Bilirubin Urine Urobilinogen Ur Leukocyte Esterase Urine RBC Urine WBC Ur Epithelial Cells Urine Bacteria 03/29/18 21:11 WBC RBC Hgb Hct MCV MCH MCHC RDW Plt Count MPV Absolute Neuts (auto) Absolute Lymphs (auto) Absolute Monos (auto) Absolute Eos (auto) Absolute Basos (auto) Neutrophils % Lymphocytes % Monocytes % Eosinophils % Basophils % PT INR PTT (SP) D-Dimer, Quantitative Sodium Potassium Chloride Carbon Dioxide Anion Gap BUN Creatinine BUN/Creatinine Ratio Random Glucose Serum Osmolality Lactic Acid Calcium Magnesium Total Bilirubin Direct Bilirubin Indirect Bilirubin AST ALT Alkaline Phosphatase Creatine Kinase CK-MB (CK-2) CK-MB (CK-2) % Troponin I B-Natriuretic Peptide Serum Total Protein Albumin Urine Color Yellow Urine Appearance Clear Urine pH 7.0 Ur Specific Joanna 1.010 Urine Protein Negative Urine Glucose (UA) Negative Urine Ketones Negative Urine Blood Negative Urine Nitrite Negative Urine Bilirubin Negative Urine Urobilinogen 0.2 Ur Leukocyte Esterase Negative Urine RBC 0 Urine WBC 0 Ur Epithelial Cells 0 Urine Bacteria 0 - EKG/XRAY/CT XRAY: chest - no acute changes CT Ordered: Yes - abd/p-no acute findings noted Departure - Departure Clinical Impression: Malaise and fatigue, Hyponatremia Time of Disposition: 22:58 Disposition: Discharge to Home or Self Care Condition: Fair Departure Forms: ED Discharge - Pt. Copy, Patient Portal Self Enrollment Instructions: High Calorie, High Protein Diet, Quitting Smoking for Older Adults, Smoking: Not Just Harmful to Your Lungs and Heart, Quitting Smoking, Steroid Medicines, Drugs to Help You Stop Using Tobacco Referrals: Richard Dasilva MD [Primary Care Provider] - 1-2 Weeks Home Medications: Ambulatory Orders HYDROcodone 10MG/APAP 325MG [[place] 10/325] 1 ea PO Q4H 10/31/13 Pantoprazole Tablet [Protonix] 40 mg PO ACBK 03/09/15 Albuterol Sulfate Nebs [Proventil Nebs] 2.5 mg INH DAILY 03/18/18 Ascorbic Acid [Vitamin C] 500 mg PO BEDTIME 03/18/18 Hydrochlorothiazide 25 mg PO DAILY 03/18/18 Multiple Vitamins W/ Minerals [Womens Multi] 1 cap PO BEDTIME 03/18/18 Pregabalin [Lyrica] 50 mg PO BEDTIME 03/18/18 Cefdinir 300 mg PO BID #14 capsule 03/21/18 Nystatin Suspension 5 ml MT QID #40 ud 03/21/18 Prednisone See Taper PO DAILY #30 tab 03/21/18 guaiFENesin ER TAB [Mucinex Tab] 1,200 mg PO BID #60 tab 03/21/18 Sulfa/Trimeth 800/160 (Ds) Tab [Bactrim DS] 1 tablet PO BID #14 tab 03/23/18 Additional Instructions: Need to just take prednisone 10 mg once daily until gone;follow up with primary Md 31 March 2018 as needed;Return to ER as needed;continue with home meds
--- NOTE | 2018-03-29 20:56 | RAD ---
EXAM DESCRIPTION: AP view of the chest CLINICAL HISTORY:58 years Female, cough Comparison: March 21, 2018 FINDINGS: Stable right lower lobe nodular density. The lungs are otherwise clear. There are no pleural abnormalities. The cardiac silhouette and pulmonary vessels are normal. IMPRESSION: No acute cardiopulmonary disease and no significant change from prior study Electronically signed by: Luis Carlos Valle DO 03/29/2018 8:55 PM [employer]
[2018-03-29] MEDS: LACTATED RINGERS 1,000 ML IVS ONE (21:18)
--- NOTE | 2018-03-29 22:39 | CT ---
EXAM DESCRIPTION: Abdoment/Pelvis w/o Contrast CLINICAL HISTORY:58 years Female, abdominal pain Comparison: None TECHNIQUE: Contiguous axial images of the abdomen and pelvis were obtained followed by reconstruction images. This exam was performed according to our departmental dose-optimization program, which includes automated exposure control, adjustment of the mA and/or kV according to patient size and/or use of iterative reconstruction technique. FINDINGS: Lung bases: Lung bases are clear. Heart: Visualized heart is within normal limits in size. Liver:Unremarkable. No focal liver lesion. Gallbladder:Cholecystectomy clips seen in gallbladder fossa. Spleen:Unremarkable Pancreas: Pancreas is unremarkable. Adrenal glands:Within normal limits. Kidneys/ureters:Within normal limits Bladder:Unremarkable. Pelvic organs: No acute abnormality Vascular structures: Scattered atherosclerotic calcifications Peritoneum: No free fluid. Lymph nodes: No abnormal lymph nodes. Stomach/small bowel/colon: Stomach is unremarkable. Mild diffuse gaseous dilatation of the small bowel. No abnormal air-fluid levels. Moderate colonic stool. No acute colon abnormality. Appendix: Appendix not seen with certainty. However, no inflammatory changes or fluid seen in the pericecal region and right lower quadrant. Bones: No acute osseous abnormality. Soft tissues: Unremarkable.. IMPRESSION: No acute intra-abdominal abnormality. Electronically signed by: Luis Carlos Valle DO 03/29/2018 10:38 PM [facility]
[2018-03-29 23:18] VITALS: BP 117/81; O2SAT 88
== END 2018-03-29 23:19 | disposition home or self-care (01) ==
LOC: ER 18:52
DX: E87.1 Hypo-osmolality and hyponatremia (principal); R53.81 Other malaise; R53.83 Other fatigue; J44.9 Chronic obstructive pulmonary disease, unspecified; K21.9 Gastro-esophageal reflux disease without esophagitis; Z79.899 Other long term (current) drug therapy; Z88.0 Allergy status to penicillin; Z88.8 Allergy status to other drugs, medicaments and biological substances

== ENCOUNTER 2018-07-03 10:39 | Inpatient (IN) | payer MEDICARE ==
[2018-07-03] MEDS ORDERED: IPRATROPIUM/ALBUTEROL 3 ML VIAL NEB ONE (11:06)
--- NOTE | 2018-07-03 11:38 | RAD ---
PROCEDURE: XR Chest, 2 Views CLINICAL INDICATION: The patient is 58 years old and is Female; cough, copd, sob TECHNIQUE: Frontal and lateral views of the chest. COMPARISON: Prior study from 03/29/2018 FINDINGS: LUNGS: Stable large nodule in the RIGHT lower lobe. New infiltrate in the RIGHT middle lobe obscuring the RIGHT heart border. Pulmonary vascularity is normal. PLEURAL SPACE: There is NO pneumothorax. There are no pleural effusions noted. HEART: The heart size is normal. MEDIASTINUM: The mediastinal contour is unremarkable. BONES/JOINTS: No acute abnormality. IMPRESSION: 1. Stable large nodule in the RIGHT lower lobe. 2. New very extensive infiltrate in the RIGHT middle lobe obscuring the RIGHT heart border and easily appreciated on the lateral view. Continued radiographic follow-up is recommended. Electronically signed by: Atif Sanchez MD 07/03/2018 11:35 AM [facility]
[2018-07-03] MEDS ORDERED: predniSONE 20 MG TAB PO ONE (11:46)
[2018-07-03] MEDS ORDERED: AZITHROMYCIN 250 MG TAB PO ONE (11:46)
[2018-07-03] MEDS ORDERED: CEFEPIME 1 GM in SODIUM CHLORIDE 0.9% 50ML 50 ML IVPB ONE (11:47)
[2018-07-03] MEDS ORDERED: CEFEPIME 2 GM VIAL ONE (11:59)
[2018-07-03] MEDS ORDERED: SODIUM CHLORIDE 0.9% 50ML 50 ML ONE (12:00)
--- NOTE | 2018-07-03 12:46 | ED.PDOC ---
History of Present Illness - General Chief Complaint: General Stated Complaint: generalized aches, shortness of breath Time Seen by Provider: 07/03/18 10:44 Source: patient Exam Limitations: no limitations - History of Present Illness Initial Comments: The patient is a 58-year-old female presenting to the emergency room secondary to feeling bad in general as well as some mild increase in her shortness of breath. She does have long-standing known COPD along with a known right lower lobe pulmonary nodule that has been present for a long time. The patient thinks she may have been having some mild low-grade fevers. Minimally productive sputum. She is feeling weaker than normal. She normally wears oxygen at night and only at night. Pulse oximetry on room air here ranges from 80-84% on room air while she is awake. She does have chronic dry rales and maybe some increased right mid to lower lung Rales. No respiratory distress. She is alert and pleasant and cooperative. She has been having a little right sided chest pain with taking deep breaths. Symptoms started worsening just over the last 24 hours. Timing/Duration: 24 hours Severity: moderate Improving Factors: nothing Worsening Factors: nothing Associated Symptoms: chest pain, cough, loss of appetite, malaise, shortness of breath, weakness Allergies/Adverse Reactions: Allergies Fluconazole [From Diflucan] Allergy (Verified 04/22/17 18:34) Levofloxacin [From Levaquin] Allergy (Verified 04/22/17 18:34) Penicillin G Allergy (Verified 04/22/17 18:34) Home Medications: Ambulatory Orders HYDROcodone 10MG/APAP 325MG [Allred ] 1 ea PO Q4H PRN 10/31/13 Pantoprazole Tablet [Protonix] 40 mg PO ACBK 03/09/15 Albuterol Sulfate Nebs [Proventil Nebs] 2.5 mg INH DAILY 03/18/18 Ascorbic Acid [Vitamin C] 500 mg PO BEDTIME 03/18/18 Hydrochlorothiazide 25 mg PO DAILY 03/18/18 Multiple Vitamins W/ Minerals [Womens Multi] 1 cap PO BEDTIME 03/18/18 Pregabalin [Lyrica] 100 mg PO BEDTIME 03/18/18 Aspirin [Aspirin EC] 81 mg PO BEDTIME 07/03/18 Review of Systems - Review of Systems Constitutional: States: fever, malaise, weakness EENTM: States: nose congestion Respiratory: States: cough, short of breath Cardiology: States: chest pain Gastrointestinal/Abdominal: States: no symptoms reported Genitourinary: States: no symptoms reported Musculoskeletal: States: no symptoms reported Skin: States: no symptoms reported Neurological: States: no symptoms reported Endocrine: States: no symptoms reported All other Systems: No Change from Baseline Past Medical History (General) - Patient Medical History Hx Seizures: No Hx Stroke: No Hx Dementia: No Hx Asthma: No Hx of COPD: Yes Hx Cardiac Disorders: No Hx Congestive Heart Failure: No Hx Pacemaker: No Hx Hypertension: No Hx Thyroid Disease: No Hx Diabetes: No Hx Gastroesophageal Reflux: Yes Hx Renal Disease: No Hx Cancer: No Hx of HIV: No Hx Hepatitis C: No Hx MRSA: No Surgical History: other - Vaccination History Hx Tetanus, Diphtheria Vaccination: No Hx Influenza Vaccination: Yes Hx Pneumococcal Vaccination: No - Social History Hx Tobacco Use: Yes Hx Alcohol Use: No Hx Substance Use: No Hx Physical Abuse: No Hx Emotional Abuse: No - Female History Patient : No Family Medical History - Family History Father Living Status: Age at (years of age): 61 Cause of : Lung Disease H2S gas Mother Age (years): 73 Living Status: Still Living Hx Family Hypertension: Yes Hx Family Diabetes: Yes Physical Exam - Physical Exam General Appearance: Alert, Comfortable, No apparent distress Eye Exam: bilateral normal Ears, Nose, Throat: hearing grossly normal, normal pharynx, nasal congestion Neck: full range of motion, supple Respiratory: no respiratory distress, no accessory muscle use, rales, wheezing Cardiovascular/Chest: normal peripheral pulses, regular rate, rhythm, no edema Peripheral Pulses: radial,right: 2+, radial,left: 2+ Gastrointestinal/Abdominal: non tender, soft Rectal Exam: deferred Back Exam: no CVA tenderness, no vertebral tenderness Extremity: normal range of motion, non-tender, normal inspection, no pedal edema, normal capillary refill Neurologic: rn behavioral health II-XII nml as tested, alert, normal mood/affect, oriented x 3 Skin Exam: normal color Comments: Vital Signs - 24 hr 07/03/18 07/03/18 07/03/18 10:47 11:34 11:39 Temperature 99.0 F Pulse Rate 94 H Pulse Rate [ 97 H 100 H left brachial] Respiratory 14 20 20 Rate Blood Pressure 102/72 107/63 [left brachial] O2 Sat by Pulse 82 L 91 L 90 L Oximetry 07/03/18 07/03/18 07/03/18 11:40 12:00 12:30 Temperature Pulse Rate 88 Pulse Rate [ 88 left brachial] Respiratory 20 16 Rate Blood Pressure 99/65 [left brachial] O2 Sat by Pulse 91 L 90 L Oximetry 07/03/18 12:35 Temperature Pulse Rate Pulse Rate [ left brachial] Respiratory 16 Rate Blood Pressure [left brachial] O2 Sat by Pulse Oximetry Progress - Progress Progress: 07/03/18 12:49 the patient's a 58-year-old female presenting to emergency room with a new right middle lobe pneumonia with some worsening hypoxia and mild COPD exacerbation. The patient is now oxygen dependent 24-7 with this pneumonia. Blood and sputum cultures are being done. She is being placed on cefepime and azithromycin. She has received a breathing treatment and one dose of oral prednisone for the COPD component. The patient may benefit from CPT. Additionally the patient does have some significant polycythemia and maybe benefit from removing a unit or 2 of blood. white blood cell count is significantly elevated however she does normally run a moderately elevated white blood cell count. admit for care of pneumonia and COPD exacerbation Departure - Departure Clinical Impression: COPD with acute exacerbation, Polycythemia secondary to smoking Pneumonia Qualifiers: Pneumonia type: due to unspecified organism Laterality: right Lung location: middle lobe of lung Qualified Code(s): J18.1 - Lobar pneumonia, unspecified organism Disposition: Admit Patient Departure Forms: ED Discharge - Pt. Copy, Patient Portal Self Enrollment Referrals: Richard Dasilva MD [Primary Care Provider] - 1-2 Weeks Home Medications: Ambulatory Orders HYDROcodone 10MG/APAP 325MG [[place]red 10/325] 1 ea PO Q4H PRN 10/31/13 Pantoprazole Tablet [Protonix] 40 mg PO ACBK 03/09/15 Albuterol Sulfate Nebs [Proventil Nebs] 2.5 mg INH DAILY 03/18/18 Ascorbic Acid [Vitamin C] 500 mg PO BEDTIME 03/18/18 Hydrochlorothiazide 25 mg PO DAILY 03/18/18 Multiple Vitamins W/ Minerals [Womens Multi] 1 cap PO BEDTIME 03/18/18 Pregabalin [Lyrica] 100 mg PO BEDTIME 03/18/18 Aspirin [Aspirin EC] 81 mg PO BEDTIME 07/03/18 Decision To Admit - Decistion To Admit Decision to Admit Reason: Medical Nature Decision to Admit Date: 07/03/18 Decision to Admit Time: 12:52
--- NOTE | 2018-07-03 12:49 | HP ---
SUPERVISING PHYSICIAN: Geo Gonzalez M.D. CHIEF COMPLAINT: Shortness of breath. HISTORY OF PRESENT ILLNESS: This is a 58 year-old female patient who came to the Emergency Room secondary to feeling poorly for about 1 week. She has a longstanding history of chronic obstructive pulmonary disease as well as continues to smoke daily. She also has a stable right lower lobe pulmonary nodule. She admitted that she had some low-grade fever but has had very minimal sputum production. She also complains of weakness and she does wear oxygen at night. Pulse oximetry on room air in the E. R. was 80 to 84% on room air while she is awake. Vital signs in the E. R. show a temperature of 99, heart rate 97, blood pressure 102/72, respiratory rate 20. She was 82% on room air and she came up to 91% on 2.5 liters nasal cannula. Labs in the E. R. showed a white count of 20,500, hemoglobin 17.6, hematocrit 53.7. Sodium was low 132, potassium 3.5, chloride 90, glucose 153 with 265.9 serum osmolality. Chest x- ray showed: 1) Stable large nodule in the right lower lobe. 2) New very extensive infiltrate in the right middle lobes obscuring the right heart border and it is easily appreciated on the lateral view. She was given azithromycin and Cefepime in the E. R. as well as a small amount of fluids. She was also given multiple breathing treatments. I was called for hospital admission. PAST MEDICAL HISTORY: 1. Sleep apnea. 2. Low back pain. 3. Chronic obstructive pulmonary disease. 4. Chronic pain syndrome. 5. Gastroesophageal reflux disease. 6. Pulmonary nodule in the right lower lobe. 7. Rheumatoid arthritis. PAST SURGICAL HISTORY: 1. Left arm surgery. 2. Cholecystectomy. 3. Perforated ulcer repair. CURRENT MEDICATIONS: 1. Albuterol sulfate nebs. 2. Ascorbic acid. 3. Aspirin. 4. Multivitamins. 5. Pantoprazole tablets. 6. Hydrochlorothiazide. 7. Hydrocodone 10 mg/325 mg 1 tab every 4 hours. 8. Pregabalin. ALLERGIES: FLUCONAZOLE, LEVOFLOXACIN AND PENICILLIN G. SOCIAL HISTORY: She lives in [place]. She smokes 1 pack of cigarettes per day and has since she was in her teens. She denies any ETOH or illicit drug use. REVIEW OF SYSTEMS: Positive for chills and low-grade fever. Negative for weight changes. HEENT: Negative for sinus symptoms, ear pain, vision changes or shortness of breath. RESPIRATORY: Positive for coughing, wheezing, shortness of breath. CARDIOVASCULAR: Negative for chest pain, palpitations or tachycardia. GASTROINTESTINAL: Negative for abdominal pain, constipation, diarrhea, nausea or vomiting. GENITOURINARY: Negative for hematuria, dysuria or polyuria. MUSCULOSKELETAL: Negative for arthralgias or myalgias. SKIN: Negative for lesions or rashes. NEUROLOGIC: Negative for headache, dizziness or seizures. PHYSICAL EXAMINATION: VITAL SIGNS: 98.3, heart rate 100, blood pressure 95/63, respiratory rate 22, O2 sat of 91% on a Venturi mask at 8 liters per minute. GENERAL: This is a 58 year-old female patient who is lying in her bed. She looks older than her stated age. She is in mild respiratory distress. HEENT: Normocephalic and atraumatic. Pupils are equal and reactive. Oropharynx is clear. NECK: Supple without mass. RESPIRATORY: Expiratory wheezes throughout as well as a few scattered rhonchi. She is diminished at the bases. She is tachypneic and is using accessory muscles. She has to speak in short phrases due to her dyspnea. CHEST: There is equal rise and fall of the chest with inspiration and expiration. CARDIOVASCULAR: Regular rate and rhythm but at times she becomes mildly tachycardic. GASTROINTESTINAL: Abdomen is soft, nondistended, non-tender. Bowel sounds are positive. EXTREMITIES: No clubbing, cyanosis or edema. NEUROLOGIC: She is awake, alert and oriented times three. Cranial nerves II- XII are grossly intact. LABORATORY: Labs and films are as per history of present illness. ASSESSMENT: 1. Sepsis related to right middle lobe pneumonia most likely community acquired with leukocytosis with 20,500 and a heart rate of 94 as well as respiratory rate of 22. 2. Chronic obstructive pulmonary disease with acute exacerbation in a chronic smoker. 3. Leukocytosis secondary to #1. 4. Chronic tobacco abuse. She continues to smoke 1 pack of cigarettes daily. 5. Anxiety and depression. 6. History of rheumatoid arthritis on chronic opioid therapy. 7. Gastroesophageal reflux disease. PLAN: We will admit the patient to the hospital. I have initiated the pneumonia guidelines. I have ordered lab and a chest x-ray for in the morning. I have also given her Solu-Medrol and will taper that according to her clinical response. She will have aggressive pulmonary hygiene. We will continue to monitor closely and follow as needed. [id number]
[2018-07-03] MEDS ORDERED: ALBUTEROL SULFATE 2.5 MG/3 ML VIAL NEB PRN (15:38)
[2018-07-03] MEDS ORDERED: SODIUM CHLORIDE 0.9% (FLUSH) 10 ML SYG IV PRN (15:38)
[2018-07-03] MEDS: IPRATROPIUM/ALBUTEROL 3 ML VIAL NEB SCH ×2 (16:18→20:33)
[2018-07-03] MEDS: HYDROcodone 10MG/APAP 325MG 1 EA TAB PO PRN ×2 (16:25→20:28)
[2018-07-03] MEDS: IV SET AND CAP CHANGE INJ INJ SCH (16:25)
[2018-07-03] MEDS: AZITHROMYCIN 250 MG TAB PO SCH (16:26)
[2018-07-03] MEDS: NICOTINE PATCH 14 MG TD SCH (16:29)
[2018-07-03] MEDS ORDERED: PANTOPRAZOLE SODIUM IV 40 MG VIAL ONE (19:18)
[2018-07-03] MEDS: ENOXAPARIN SODIUM 40 MG/0.4 ML SYG SUBCU SCH (20:28)
[2018-07-03] MEDS: PREGABALIN 100 MG CAP PO SCH (20:28)
[2018-07-03] MEDS: SODIUM CHLORIDE 0.9% (FLUSH) 10 ML SYG IV SCH (20:28)
[2018-07-04] MEDS: IPRATROPIUM/ALBUTEROL 3 ML VIAL NEB SCH ×6 (00:25→20:45)
[2018-07-04] MEDS: HYDROcodone 10MG/APAP 325MG 1 EA TAB PO PRN ×6 (01:58→22:30)
[2018-07-04] MEDS: PANTOPRAZOLE SODIUM IV 40 MG VIAL IV SCH (06:05)
--- NOTE | 2018-07-04 06:48 | RAD ---
EXAM DESCRIPTION: 2 views of the chest CLINICAL HISTORY: Pneumonia COMPARISON: 07/03/2018. FINDINGS: Frontal and lateral views of the chest. Cardiomediastinal silhouette is stable. Right basilar airspace opacity is stable. Hyperinflation. No pneumothorax. Possible small right pleural effusion. No acute osseous abnormalities. Stable right lower lobe pulmonary nodule. Upper abdominal soft tissues are unremarkable. IMPRESSION: 1. Stable appearance of the chest with persistent right lower lobe airspace opacity concerning for pneumonia. Electronically signed by: Dar Franco 07/04/2018 6:45 AM [facility]IDENT [facility]C
[2018-07-04] MEDS ORDERED: cefTRIAXone SODIUM 1 GM VIAL ONE (07:46)
[2018-07-04] MEDS ORDERED: SODIUM CHL 0.9% 50ML MIN-BAG+ 50 ML IVPB ONE (07:46)
[2018-07-04] MEDS: NICOTINE PATCH 14 MG TD SCH (08:41)
[2018-07-04] MEDS: hydroCHLOROthiazide 25 MG TAB PO SCH (08:42)
[2018-07-04] MEDS: cefTRIAXone SODIUM 1 GM in SODIUM CHL 0.9% 50ML MIN-BAG+ 50 ML IVPB SCH (09:45)
[2018-07-04] MEDS: SODIUM CHLORIDE 0.9% (FLUSH) 10 ML SYG IV SCH ×2 (09:46→20:07)
[2018-07-04] MEDS ORDERED: SODIUM CHLORIDE 0.9% 500ML 500 ML IVS ONE (09:48)
[2018-07-04] MEDS ORDERED: POTASSIUM CHLORIDE 20 MEQ TAB PO ONE (09:52)
[2018-07-04] MEDS: methylPREDNISolone SODIUM SUC 125 MG/2 ML VIAL IV SCH ×2 (11:56→17:45)
--- NOTE | 2018-07-04 15:55 | PN ---
DATE: 07/04/18 SUPERVISING PHYSICIAN: Geo Gonzalez M.D. SUBJECTIVE: The patient is sitting up in her bed. She is doing her breathing treatment. She continues to be very weak in the legs as well as shortness of breath with any exertion. She is very worried about that the last few weeks she has been very immobile and she is worried that she is not going to be able to get around at home. I have assured that we will get Physical Therapy in the morning and assist her with strengthening. She denied any chest pain, nausea, vomiting or constipation. OBJECTIVE: VITAL SIGNS: Temperature 97.8, heart rate 87, blood pressure 97/59, respiratory rate 18 to 22. O2 sat is 93% on 4 liters nasal cannula. RESPIRATORY: Diminished breath sounds throughout but she does have expiratory wheezes on the right side and a few scattered rhonchi. She is slightly tachypneic at times. She does have to speak in short phrases due to her shortness of breath. CARDIAC: Regular rate and rhythm. GASTROINTESTINAL: Abdomen is soft, nondistended, non-tender. Bowel sounds are positive. NEUROLOGIC: She is awake, alert and oriented times three. LABORATORY: WBCs have improved to 17,100 with hemoglobin 15.9, hematocrit 48.4. There is a left shift on her differential. Sodium is low at 131 with potassium 3.4, chloride 90. Serum osmolality 261.7. The remaining electrolytes are within normal limits. BUN 10, creatinine 0.6. Sputum culture is pending. Preliminary blood cultures show no growth after 24 hours. Chest x-ray shows stable appearance of the chest with persistent right lower lobe airspace opacity concerning for pneumonia. All other labs and films have been reviewed via the EMR. ASSESSMENT: 1. Sepsis related to right middle lobe pneumonia most likely community acquired with leukocytosis with admitting WBCs of 20,500 and a heart rate of 94 as well as respiratory rate of 22. 2. Chronic obstructive pulmonary disease with acute exacerbation in a chronic smoker. 3. Leukocytosis secondary to #1. 4. Chronic tobacco abuse. She continues to smoke 1 pack of cigarettes daily. 5. Anxiety and depression. 6. History of rheumatoid arthritis on chronic opioid therapy. 7. Gastroesophageal reflux disease. 8. Elevated hemoglobin and hematocrit most likely chronic in a smoker. After hydration it has normalized. PLAN: We will continue present supportive care, including her antibiotics. I have given her 60 mg of Solu-Medrol every 6 hours times 4 doses. That will need to be tapered down tomorrow. She will also have a aggressive pulmonary hygiene. We also discussed smoking cessation at length. I have ordered physical therapy for her tomorrow. Will continue to monitor closely and follow as needed. #[id number] [facility]
[2018-07-04] MEDS: AZITHROMYCIN 250 MG TAB PO SCH (16:07)
[2018-07-04] MEDS: ENOXAPARIN SODIUM 40 MG/0.4 ML SYG SUBCU SCH (20:06)
[2018-07-04] MEDS: PREGABALIN 100 MG CAP PO SCH (20:06)
[2018-07-05] MEDS: IPRATROPIUM/ALBUTEROL 3 ML VIAL NEB SCH ×6 (00:35→20:21)
[2018-07-05] MEDS: methylPREDNISolone SODIUM SUC 125 MG/2 ML VIAL IV SCH ×2 (01:14→06:40)
[2018-07-05] MEDS: HYDROcodone 10MG/APAP 325MG 1 EA TAB PO PRN ×5 (02:30→19:20)
[2018-07-05] MEDS: PANTOPRAZOLE SODIUM IV 40 MG VIAL IV SCH (06:54)
[2018-07-05] MEDS ORDERED: SODIUM CHL 0.9% 50ML MIN-BAG+ 50 ML IVPB ONE (07:09)
[2018-07-05] MEDS ORDERED: cefTRIAXone SODIUM 1 GM VIAL ONE (07:09)
--- NOTE | 2018-07-05 07:21 | RAD ---
Study: Frontal and Lateral Radiographs of the Chest. Indication: pna Comparison: July 04, 2018 Impression: Heart size upper limits of normal. Emphysema suspected. Slightly improved opacity within the right lung base concerning for pneumonia. The rounded mass projecting at the right lung base on the frontal view is redemonstrated measuring up 2.3 cm and may be slightly increased in size compared to prior examinations dating back to April 22, 2017. This mass is not definitively visualized on the lateral view and could lie within the soft tissues. Contrast-enhanced CT chest could better evaluate if this has not been previously characterized or biopsied. Tiny pleural effusions suspected. No pneumothorax. Electronically signed by: Bereket Hatch MD 07/05/2018 7:18 AM [employer]
[2018-07-05] MEDS: hydroCHLOROthiazide 25 MG TAB PO SCH (08:17)
[2018-07-05] MEDS: NICOTINE PATCH 14 MG TD SCH (08:17)
[2018-07-05] MEDS: SODIUM CHLORIDE 0.9% (FLUSH) 10 ML SYG IV SCH ×2 (08:20→19:21)
--- NOTE | 2018-07-05 09:25 | CT ---
Study: CT Chest. Indication: nodule RLL Technique: CT imaging of the chest obtained after intravenous administration of contrast. This exam was performed according to our departmental dose-optimization program, which includes automated exposure control, adjustment of the mA and/or kV according to patient size and/or use of iterative reconstruction technique. Comparison: Radiographs, same day. Findings: Atherosclerosis great vessels, aorta, and coronary arteries. Cardiomegaly. Dilatation main pulmonary artery up to 3.3 cm which can be seen with pulmonary arterial hypertension. No pathologically enlarged mediastinal or hilar lymphadenopathy. Degenerative changes of the spine noted. Moderate emphysema. Within the right lower lobe there is an ovoid 2.5 x 1.9 cm pulmonary nodule with several small adjacent satellite nodules measuring up to 5 mm. There is mild wedge-shaped consolidation in the bases of the bilateral lower lobes, right greater than left. No pleural effusion or pneumothorax. Impression: 2.5 cm ovoid nodule in the base of the right lower lobe in the setting of moderate emphysema. Several satellite nodules noted as well. Malignancy should be excluded. Correlation with PET/CT versus biopsy recommended. Bibasilar consolidation which could reflect pneumonia or atelectasis. Atherosclerosis. Findings which can be seen with pulmonary arterial hypertension. Cardiomegaly. Electronically signed by: Bereket Hatch MD 07/05/2018 9:22 AM COMMODITY MANAGEMENT SPECIALIST
[2018-07-05] MEDS: cefTRIAXone SODIUM 1 GM in SODIUM CHL 0.9% 50ML MIN-BAG+ 50 ML IVPB SCH (10:08)
[2018-07-05] MEDS: methylPREDNISolone SODIUM SUC 40 MG/ML VIAL IV SCH ×2 (11:58→17:03)
[2018-07-05] MEDS: NYSTATIN SUSPENSION 5 ML UD MT SCH ×3 (12:01→21:12)
[2018-07-05] MEDS: AZITHROMYCIN 250 MG TAB PO SCH (17:00)
[2018-07-05] MEDS ORDERED: ACETAMINOPHEN 325 MG TAB PO PRN (17:09)
[2018-07-05] MEDS ORDERED: KETOROLAC TROMETHAMINE INJ 30 MG/ML VIAL IV ONE (17:09)
[2018-07-05] MEDS ORDERED: ONDANSETRON INJ 4 MG/2 ML VIAL IV PRN (19:08)
--- NOTE | 2018-07-05 19:58 | PN ---
DATE: 07/05/18 SUPERVISING PHYSICIAN: Eron Davis M.D. SUBJECTIVE: The patient notes that her breathing is a little bit better today. She does not feel as tight and starved for air. She normally does wear oxygen at night and at this point is continuing to require it 24/7. I understand that given her underlying pneumonia process, will need to probably go home with continued 24/7. Again, we discussed at length a smoking cessation course and plan. At this point she seems to be motivated to continue with smoking cessation with nicotine and to followup with Dr. Dasilva. She remains without any chest pains, nausea or vomiting, diarrhea or constipation. I did discuss with her the findings of the nodule on her chest film which is not a new finding, but will continue to follow initially with a CT of the chest with contrast, and she will followup with Dr. Dasilva in the outpatient setting. She has voiced that she has not chosen to do any aggressive management or any further studies. There is an agreement to allow further assessment with a CT of the chest. The patient notes that she is having some burning in the back of her throat that she has associated previously with thrush and I discussed that we would start her on some swish and swallow Nystatin. OBJECTIVE: VITAL SIGNS: Temperature 98.5, pulse 95, blood pressure 101/65, respirations 18, showing 82% on nasal cannula at 3 liters prior to breathing treatment and improving with breathing treatment up to 94% at 3 liters. Weight is 48.2 kg. GENERAL: The patient is alert. She appears to be in no acute distress. CHEST: Sounds are continuing to be diminished throughout with just a very faint inspiratory/expiratory wheezing. HEART: Regular rate and rhythm. ABDOMEN: Soft, non-tender. Positive bowel sounds. EXTREMITIES: Without any clubbing, cyanosis or edema. NEUROLOGIC: She is alert and oriented times three. LABORATORY: White count is now down to 11,800, hemoglobin 15.7, hematocrit 47.7. RBC indices indicate a macrocytic presentation and hypochromic with platelet count 207,000. Differential continues to show a left shift but no bands today. Chemistries show persistent hyponatremia at 131 and a slightly low potassium at 3.2 compared to previous days at 3.4. BUN is 9, creatinine 0.59. Liver functions are showing to be within normal limits. Urinalysis was within normal limits. MICROBIOLOGY: Sputum culture is pending. Preliminary shows no growth at 12 hours. Blood cultures remain negative at 48 [address] RADIOLOGY: CT of the chest this morning after chest x-ray showed slight improvement in opacity within the right lung base concerning for pneumonia. There is also note again was a round mass projecting at the right lung base, measuring 2.3 cm, slightly increased in size compared to previous exam, therefore a CT of the with contrast was completed and per radiology interpretation there was note of a 2.5 cm ovoid nodule in the base of the right lower lobe in the setting of moderate emphysema with several satellite nodules noted as well. Malignancy should be excluded. Correlation with CT versus biopsy was recommended. There is also note of bibasilar consolidation which could reflect pneumonia or atelectasis. Findings also were noted that could be consistent with pulmonary arterial hypertension as well as cardiomegaly. ASSESSMENT: 1. Sepsis secondary to right middle lobe pneumonia probably community acquired with initial leukocytosis at 20,500, respirations 22 and showing improvement with initiation of fluids and antibiotics. 2. Chronic obstructive pulmonary disease with emphysema and with a current acute exacerbation complicated by #1, community acquired pneumonia of the right lower lobe. 3. Leukocytosis secondary to #1 improving with initiation of treatment. 4. Continued tobacco abuse, approximately 1 pack of cigarettes daily. Continue to encourage smoking cessation. 5. Anxiety and depression. 6. History of rheumatoid arthritis on chronic opioid therapy. 7. Gastroesophageal reflux disease. 8. Polycythemia in a chronic smoker. PLAN: Will continue to slowly taper steroids with anticipation of hopefully being able to transition to oral presented in the morning. Will continue with aggressive pulmonary hygiene. Again discussed smoking cessation at great length and will at this point keep with nicotine patch. She will follow through with continuation through Dr. Dasilva's office possible for consideration for pharmacological methods, including possibly Chantix, but at this point she wants to wait and followup with Dr. Dasilva. I did discuss with her the findings of the CT and the recommendation of a PET scan which certainly can be addressed through Dr. Dasilva's office and again she has noted that she is not wishing to pursue any additional more invasive testing, and understands that she would probably benefit from at least a PET scan, but will discuss this with Dr. Dasilva at discharge. Hopefully be able to see that the patient makes significant improvement tomorrow with possibly discharging later tomorrow afternoon or at least Thursday morning. Until she can transition to outpatient management. Will continue to monitor and treat as needed. [id number] [facility]
[2018-07-05] MEDS: PREGABALIN 100 MG CAP PO SCH (21:12)
[2018-07-05] MEDS: ENOXAPARIN SODIUM 40 MG/0.4 ML SYG SUBCU SCH (21:12)
[2018-07-06] MEDS: methylPREDNISolone SODIUM SUC 40 MG/ML VIAL IV SCH (00:10)
[2018-07-06] MEDS: IPRATROPIUM/ALBUTEROL 3 ML VIAL NEB SCH ×7 (00:11→20:27)
[2018-07-06] MEDS: HYDROcodone 10MG/APAP 325MG 1 EA TAB PO PRN ×6 (00:16→21:27)
[2018-07-06] MEDS: PANTOPRAZOLE SODIUM IV 40 MG VIAL IV SCH (06:21)
[2018-07-06] MEDS ORDERED: SODIUM CHL 0.9% 50ML MIN-BAG+ 50 ML IVPB ONE (07:00)
[2018-07-06] MEDS ORDERED: cefTRIAXone SODIUM 1 GM VIAL ONE (07:01)
[2018-07-06] MEDS: NYSTATIN SUSPENSION 5 ML UD MT SCH ×4 (08:19→20:51)
[2018-07-06] MEDS: SODIUM CHLORIDE 0.9% (FLUSH) 10 ML SYG IV SCH ×2 (08:19→20:51)
[2018-07-06] MEDS: hydroCHLOROthiazide 25 MG TAB PO SCH (08:20)
[2018-07-06] MEDS: NICOTINE PATCH 14 MG TD SCH (08:20)
[2018-07-06] MEDS: cefTRIAXone SODIUM 1 GM in SODIUM CHL 0.9% 50ML MIN-BAG+ 50 ML IVPB SCH (09:55)
[2018-07-06] MEDS ORDERED: ASPIRIN/ACETAMINOPHEN/CAFFEINE 1 EA TAB PO PRN (11:15)
[2018-07-06] MEDS: predniSONE 20 MG TAB PO SCH (11:24)
[2018-07-06] MEDS: NICOTINE PATCH 21 MG TD SCH (11:24)
[2018-07-06] MEDS: AZITHROMYCIN 250 MG TAB PO SCH (16:18)
[2018-07-06] MEDS: IV SET AND CAP CHANGE INJ INJ SCH (16:18)
[2018-07-06] MEDS ORDERED: BISACODYL TAB 5 MG TAB PO ONE (17:53)
[2018-07-06] MEDS ORDERED: MAGNESIUM HYDROXIDE 30 ML UD PO ONE (17:53)
[2018-07-06] MEDS: PREGABALIN 100 MG CAP PO SCH (20:51)
[2018-07-06] MEDS: ENOXAPARIN SODIUM 40 MG/0.4 ML SYG SUBCU SCH (21:28)
[2018-07-07] MEDS: IPRATROPIUM/ALBUTEROL 3 ML VIAL NEB SCH ×3 (01:30→08:34)
[2018-07-07] MEDS: HYDROcodone 10MG/APAP 325MG 1 EA TAB PO PRN ×3 (02:35→10:29)
[2018-07-07] MEDS ORDERED: PANTOPRAZOLE SODIUM TAB 40 MG PO SCH (06:30)
--- NOTE | 2018-07-07 07:51 | RAD ---
EXAM: Two view chest. INDICATION: Pneumonia. COMPARISON: Chest x-ray: 07/05/2018. FINDINGS: Again noted is a 2.1 cm mass within the right lower lobe. The lungs are hyperinflated with right lower lobe opacities. The left lung is clear. There is no pneumothorax or large pleural effusion. The bones are unchanged. IMPRESSION: No significant change compared to the prior exam. Grossly stable mass and airspace disease within the right lower lobe Electronically signed by: Tre Starks MD 07/07/2018 7:49 AM [facility] Workstation: [id number]
--- NOTE | 2018-07-07 08:43 | PN ---
SUPERVISING PHYSICIAN: Eron Davis M.D. DATE: 07/06/18 SUBJECTIVE: The patient notes that she is feeling a little bit better today. She was able to ambulate in the last 24 hours, but continues to require oxygen when she is doing so, even at rest. She was again encouraged to stop smoking and is requesting that we increase her nicotine patch as she is still having quite aggressive cravings. With this plan of care, we will hopefully be able to discharge her tomorrow. After today, we will be decreasing her steroids to a dose that she can transition home on. OBJECTIVE: VITAL SIGNS: She remains afebrile. Temperature 98.2. Pulse 80. Blood pressure 94/60. Respirations 16. Oxygen saturation between 89% and 92% on nasal cannula at 3 liters at rest. I&Os well balanced. Weight 48.5 kg. CHEST: Lung sounds remain diminished towards the bases with a very faint rhonchi heard on the right lower lateral aspect compared to the left. No wheezing. HEART: Regular rate and rhythm. ABDOMEN: Soft, nontender. Positive bowel sounds. EXTREMITIES: Without any clubbing, cyanosis or edema. NEUROLOGIC: She is alert and oriented times three. LABORATORY: White count 15,500, hemoglobin 15.6, hematocrit 47.8, platelet count 210,000. Differential continues to show a left shift. Chemistries show a persistent sodium of 130 with potassium 3.4, carbon dioxide 30, chloride 89, BUN 13, creatinine 0.6, calcium 8.6. Urinalysis was within normal limits. MICROBIOLOGY: Sputum culture is pending. Blood cultures pending. RADIOLOGY: CT of the chest yesterday showed a 2.5 cm ovoid nodule at the base of the right lower lobe, again, in the setting of moderate emphysema with several satellite nodules noted with malignancy needing to be excluded. There was again note of bibasilar consolidations which could reflect pneumonia or atelectasis. No additional radiographic studies were completed today. ASSESSMENT: 1. Sepsis secondary to right middle lobe pneumonia, community acquired, requiring initiation of fluids and antibiotics, showing good response to treatment. 2. Chronic obstructive pulmonary disease with a degree of emphysema and current exacerbation, complicated by #1 and pneumonia of the right lower lobe, slowly responding clinically to treatment. 3. Leukocytosis secondary to #1, showing slight elevation with the patient being on high-dose corticosteroids. 4. Continued tobacco abuse, approximately 1 to 2 packs of cigarettes daily with continuation of encouraging smoking cessation. 5. Anxiety and depression. 6. History of rheumatoid arthritis on chronic pain management. 7. Gastroesophageal reflux disease. 8. Polycythemia in a chronic smoker. PLAN: We will taper steroids to p.o. prednisone today. She will be able to transition to p.o. antibiotics hopefully in anticipation of discharging tomorrow to followup with Dr. Dasilva with nicotine and smoking cessation. We will repeat a chest x-ray in the morning and recheck labs and hopefully be able to discharge later tomorrow. Once she discharges, she will certainly need to be followed up closely with possible PET scan as noted on previous CT and she will go home on a tapering prednisone dose as well as continued antibiotic coverage. Until then, we will continue to monitor and treat as needed. [id number] [facility]
[2018-07-07] MEDS: NICOTINE PATCH 21 MG TD SCH (09:32)
[2018-07-07] MEDS: predniSONE 20 MG TAB PO SCH (09:32)
[2018-07-07] MEDS: hydroCHLOROthiazide 25 MG TAB PO SCH (09:32)
[2018-07-07] MEDS: NYSTATIN SUSPENSION 5 ML UD MT SCH (09:32)
[2018-07-07] MEDS: SODIUM CHLORIDE 0.9% (FLUSH) 10 ML SYG IV SCH (09:33)
[2018-07-07 10:14] VITALS: BP 102/68; TEMP 98.1; O2SAT 94
[2018-07-07] MEDS ORDERED: SODIUM CHL 0.9% 50ML MIN-BAG+ 50 ML IVPB ONE (10:23)
[2018-07-07] MEDS ORDERED: cefTRIAXone SODIUM 1 GM VIAL ONE (10:24)
[2018-07-07] MEDS: cefTRIAXone SODIUM 1 GM in SODIUM CHL 0.9% 50ML MIN-BAG+ 50 ML IVPB SCH (10:30)
--- NOTE | 2018-07-14 09:23 | DS ---
SUPERVISING PHYSICIAN: Eron Davis MD ADMISSION DIAGNOSIS: 1. Sepsis related to right middle lobe pneumonia most likely community acquired with leukocytosis with 20,500 and a heart rate of 94 as well as respiratory rate of 22. 2. Chronic obstructive pulmonary disease with acute exacerbation in a chronic smoker. 3. Leukocytosis secondary to #1. 4. Chronic tobacco abuse. She continues to smoke 1 pack of cigarettes daily. 5. Anxiety and depression. 6. History of rheumatoid arthritis on chronic opioid therapy. 7. Gastroesophageal reflux disease. DISCHARGE DIAGNOSIS: 1. Sepsis secondary to right middle lobe pneumonia, community acquired, requiring initiation of fluids and antibiotics, showing good response to treatment. 2. Chronic obstructive pulmonary disease with a degree of emphysema and current exacerbation, complicated by #1 and pneumonia of the right lower lobe, slowly responding clinically to treatment. 3. Leukocytosis secondary to #1, showing slight elevation with the patient being on high-dose corticosteroids. 4. Continued tobacco abuse, approximately 1 to 2 packs of cigarettes daily with continuation of encouraging smoking cessation. 5. Anxiety and depression. 6. History of rheumatoid arthritis on chronic pain management. 7. Gastroesophageal reflux disease. 8. Polycythemia in a chronic smoker. REASON FOR HOSPITALIZATION: This is a 58 year-old female patient who came to the Emergency Room secondary to feeling poorly for about 1 week. She has a longstanding history of chronic obstructive pulmonary disease as well as continues to smoke daily. She also has a stable right lower lobe pulmonary nodule. She admitted that she had some low-grade fever but has had very minimal sputum production. She also complains of weakness and she does wear oxygen at night. Pulse oximetry on room air in the E. R. was 80 to 84% on room air while she is awake. Vital signs in the E. R. show a temperature of 99, heart rate 97, blood pressure 102/72, respiratory rate 20. She was 82% on room air and she came up to 91% on 2.5 liters nasal cannula. Labs in the E. R. showed a white count of 20,500, hemoglobin 17.6, hematocrit 53.7. Sodium was low 132, potassium 3.5, chloride 90, glucose 153 with 265.9 serum osmolality. Chest x- ray showed: 1) Stable large nodule in the right lower lobe. 2) New very extensive infiltrate in the right middle lobes obscuring the right heart border and it is easily appreciated on the lateral view. She was given azithromycin and Cefepime in the E. R. as well as a small amount of fluids. She was also given multiple breathing treatments. I was called for hospital admission. LABORATORY: Initial white count was 20,500 with 2% bands. Prior to discharge, white count had normalized to 9,800 and was showing bands. Differential showed resolving left shift. Platelet count 190,000. Chemistries showed persistent hyponatremia, but at discharge was 133, potassium 3.2, BUN 10, creatinine less than 0.4. Liver functions on admission were all within normal limits. Calcium normal, magnesium normal. Urinalysis was within normal limits. MICROBIOLOGY: Blood cultures were negative after 5 days. Final sputum culture showed a few ferdinand albicans. Influenza A and B by PCR were both negative. RADIOLOGY: Initial chest x-ray on admission showed stable large nodule in the right lower lobe with a new very extensive infiltrate in the right middle lobe obscuring the right heart border and easily appreciated on the lateral view. Please see that report for full details. Last x-ray on 07/07/18 on date of discharge showed no significant change compared to previous with grossly stable mass and airspace disease within the right lower lobe. HOSPITAL COURSE: Ms. Arevalo was admitted as noted in the history of present illness due sepsis from right middle lobe pneumonia and chronic obstructive pulmonary disease exacerbation. She was started on antibiotics at time of admission that were cefepime and azithromycin. She was also put on Solu-Medrol and tapered down to oral prednisone prior to discharge. She was showing good clinical improvement with aggressive pulmonary hygiene. She was felt stable enough to continue with outpatient management. PLAN: Ms. Arevalo was discharged on 07/07/18 with instructions to followup with her primary care provider, Dr. Dasilva, on 07/14/18 at 11 AM. She was encouraged to stop smoking. Discussion was had with the patient about Chantix versus Wellbutrin. She is going to followup with Dr. Dasilva regarding smoking cessation methods. She is to wear oxygen as instructed and never to smoke while wearing oxygen. She was told to return to the hospital for any concerning symptoms. DIET AT DISCHARGE: Resume usual diet. ACTIVITY: Increase as tolerated. MEDICATIONS PRESCRIBED AT DISCHARGE: 1. Cefdinir 300 mg twice daily, #20. 2. Nystatin swish and swallow 100,000 units 4 times daily. 3. Prednisone taper pack, 2 mg tablets. 4. Chantix starter pack. CONDITION AT DISCHARGE: Stable and improving. DISPOSITION: The patient was discharged to care of family members. #[id number] [facility]
== END 2018-07-07 12:30 | disposition home or self-care (01) | DRG 871 ==
LOC: ER 10:39 → MS 12:48
PROVIDERS: ADMIT Nurse Practitioner Acute Care; ATTEND Nurse Practitioner Acute Care
DX: A41.9 Sepsis, unspecified organism (principal); J18.1 Lobar pneumonia, unspecified organism; J44.0 Chronic obstructive pulmonary disease with (acute) lower respiratory infection; E87.1 Hypo-osmolality and hyponatremia; F17.210 Nicotine dependence, cigarettes, uncomplicated; G47.30 Sleep apnea, unspecified; G89.4 Chronic pain syndrome; K21.9 Gastro-esophageal reflux disease without esophagitis; M06.9 Rheumatoid arthritis, unspecified; F41.9 Anxiety disorder, unspecified; F32.9 Major depressive disorder, single episode, unspecified; R91.1 Solitary pulmonary nodule; D75.1 Secondary polycythemia; E87.6 Hypokalemia; J43.9 Emphysema, unspecified; Z88.0 Allergy status to penicillin; Z88.1 Allergy status to other antibiotic agents; Z79.82 Long term (current) use of aspirin; Z79.891 Long term (current) use of opiate analgesic; Z99.81 Dependence on supplemental oxygen

== ENCOUNTER → 2018-10-20 | Outpatient (CLI) | payer MEDICARE | LOC: GMAH 16:47 | PROVIDERS: ATTEND Family Medicine | DX: R10.84 Generalized abdominal pain (principal) ==

== ENCOUNTER → 2019-02-14 | Outpatient (CLI) | payer MEDICARE | LOC: GMA MATASK 18:11 | PROVIDERS: ATTEND Family Medicine | DX: R10.84 Generalized abdominal pain (principal); R82.90 Unspecified abnormal findings in urine ==

== ENCOUNTER → 2019-02-15 | Outpatient (CLI) | payer MEDICARE ==
--- NOTE | 2019-02-15 15:43 | CT ---
EXAM DESCRIPTION: Abdomen w/wo Contrast CLINICAL HISTORY: ABD PAIN COMPARISON: None. TECHNIQUE: Pre and postcontrast CT images of the abdomen are obtained. This exam was performed according to our departmental dose-optimization program, which includes automated exposure control, adjustment of the mA and/or kV according to patient size and/or use of iterative reconstruction technique . FINDINGS: Visualized lung bases show no acute findings. Mild elevation of the left hemidiaphragm. Elongation of the right lobe of the liver. No enhancing hepatic mass. Postsurgical changes from cholecystectomy. Mild intra and extrahepatic biliary ductal dilatation consistent with previous cholecystectomy. The distal common bile duct is within normal limits measuring 5 mm. Spleen, pancreas, and adrenal glands are unremarkable. Moderate vascular calcifications. Kidneys show no nephrolithiasis. Mild extrarenal pelvis seen in both kidneys. Normal cortical enhancement and excretion of contrast is seen. No pathologically enlarged abdominal or retroperitoneal lymphadenopathy. The stomach is poorly distended. Mild wall thickening of the fundus to antrum of the stomach. Visualized small bowel and colon show no acute findings. Osseous structures show no aggressive bony lesions. IMPRESSION: Mild wall thickening of the fundus to antrum of the stomach could be secondary to poor distention of the stomach versus infectious or inflammatory etiology. Consider further evaluation with upper GI exam or endoscopy. Otherwise no acute findings on CT of the abdomen. Incidentally noted is elongation of the right lobe of the liver. Cholecystectomy changes are seen. Electronically signed by: Aakash Cobb MD 02/15/2019 3:42 PM CDT
== END ==
LOC: CT 10:27
PROVIDERS: ATTEND Family Medicine
DX: R10.84 Generalized abdominal pain (principal); K31.9 Disease of stomach and duodenum, unspecified

== ENCOUNTER 2019-02-16 12:10 | Observation (INO) | payer MEDICARE ==
[2019-02-16] MEDS ORDERED: MORPHINE SULFATE INJ 10 MG/ML VIAL IV ONE (12:35)
[2019-02-16] MEDS ORDERED: methylPREDNISolone SODIUM SUC 40 MG/ML VIAL IV ONE (12:35)
[2019-02-16] MEDS ORDERED: ALUM & MAG HYDROX-SIMETHICONE 30 ML, LIDOCAINE VISCOUS 2% 15 ML PO ONE ×2 (13:22)
[2019-02-16] MEDS ORDERED: ALUM & MAG HYDROX-SIMETHICONE 30 ML UD ONE (13:40)
[2019-02-16] MEDS ORDERED: LIDOCAINE HCL 2% (MOUTH-THROAT) 15 ML UD ONE (13:40)
--- NOTE | 2019-02-16 13:51 | RAD ---
EXAM DESCRIPTION: Abdomen Flat Upright (accession [id number]), Chest,2 Views (accession [id number]) CLINICAL HISTORY: 59 years Female, body aches, immunosupressed COMPARISON: Numerous examinations to include CT December 07, 2014 Findings: Cardiac silhouette and pulmonary vasculature are within normal limits. No pneumothorax. No pleural effusion. Biapical scarring. The lungs are hyperexpanded. Redemonstrated right lower lobe nodule measuring 2.8 cm (this is been present dating back to June 27, 2006 although the available data does not demonstrate PET/CT imaging or percutaneous biopsy). If this has not been definitively characterized, further evaluation with PET/CT or biopsy is recommended. No focal consolidation. Cholecystectomy clips. Nonobstructive bowel gas pattern. Small stool volume. No free air beneath the diaphragm. No suspicious calcification. No acute osseous abnormality. Soft tissues are unremarkable. IMPRESSION: Redemonstrated right lower lobe pulmonary nodule measuring 2.8 cm. Recommendations as above. Nonobstructive bowel gas pattern. Electronically signed by: Isaias Salcedo MD 02/16/2019 1:49 PM CDT
--- NOTE | 2019-02-16 13:52 | RAD ---
EXAM DESCRIPTION: Abdomen Flat Upright (accession [id number]), Chest,2 Views (accession [id number]) CLINICAL HISTORY: 59 years Female, body aches, immunosupressed COMPARISON: Numerous examinations to include CT December 07, 2014 Findings: Cardiac silhouette and pulmonary vasculature are within normal limits. No pneumothorax. No pleural effusion. Biapical scarring. The lungs are hyperexpanded. Redemonstrated right lower lobe nodule measuring 2.8 cm (this is been present dating back to June 27, 2006 although the available data does not demonstrate PET/CT imaging or percutaneous biopsy). If this has not been definitively characterized, further evaluation with PET/CT or biopsy is recommended. No focal consolidation. Cholecystectomy clips. Nonobstructive bowel gas pattern. Small stool volume. No free air beneath the diaphragm. No suspicious calcification. No acute osseous abnormality. Soft tissues are unremarkable. IMPRESSION: Redemonstrated right lower lobe pulmonary nodule measuring 2.8 cm. Recommendations as above. Nonobstructive bowel gas pattern. Electronically signed by: Isaias Salcedo MD 02/16/2019 1:49 PM CDT
[2019-02-16] MEDS ORDERED: SODIUM CHLORIDE 0.9% 1000ML 1,000 ML IVS ONE (13:55)
[2019-02-16] MEDS ORDERED: SUCRALFATE 1 GM/10 ML 1 GM UD PO ONE (13:56)
[2019-02-16] MEDS ORDERED: PANTOPRAZOLE SODIUM IV 40 MG VIAL IV ONE (13:56)
--- NOTE | 2019-02-16 14:30 | ED.PDOC ---
History of Present Illness - General Chief Complaint: General Stated Complaint: diarrhea, generalized pain Time Seen by Provider: 02/16/19 12:12 Source: patient Exam Limitations: no limitations - History of Present Illness Initial Comments: the patient is a 59-year-old female presenting to the emergency room secondary to worsening abdominal pain over the last 4-5 days. Additionally she is having significant generalized myalgias. She was recently diagnosed with rheumatoid arthritis according to her and was started on Plaquenil about 10 days ago. She has not been on long-term steroid therapy. She used to be on Lyrica however that caused swelling so that was discontinued several months ago. She has been having a little bit of diarrhea. Mild nausea but no real vomiting. No syncope. She does appear significantly uncomfortable. She does take hydrocodone normally. No fever. No productive cough. No blood in the stool. She has had a stomach ulcer in the past. She does normally take Protonix daily. She had blood work done with her primary care doctor 2 days ago. She had a CT scan of abdomen and pelvis yesterday which showed some likely inflammation in the posterior wall of the stomach. No perforation. No obstruction. No abscess formation. No pancreatitis. Timing/Duration: unsure Severity: severe Improving Factors: medication Worsening Factors: nothing Associated Symptoms: loss of appetite, malaise, nausea/vomiting Allergies/Adverse Reactions: Allergies Cefadroxil [From Duricef] Allergy (Verified 07/03/18 14:15) Fluconazole [From Diflucan] Allergy (Verified 07/03/18 14:15) Levofloxacin [From Levaquin] Allergy (Verified 07/03/18 14:15) Penicillin G Allergy (Verified 07/03/18 14:15) Home Medications: Ambulatory Orders HYDROcodone 10MG/APAP 325MG [[place] 10/325] 1 ea PO Q4H PRN 10/31/13 Pantoprazole Tablet [Protonix] 40 mg PO ACBK 03/09/15 Albuterol Sulfate Nebs [Proventil Nebs] 2.5 mg INH DAILY 03/18/18 Ascorbic Acid [Vitamin C] 500 mg PO BEDTIME 03/18/18 Hydrochlorothiazide 25 mg PO DAILY 03/18/18 Multiple Vitamins W/ Minerals [Womens Multi] 1 cap PO BEDTIME 03/18/18 Aspirin [Aspirin EC] 81 mg PO BEDTIME 07/03/18 Nystatin (Mouth-Throat) [Nystatin] 100,000 unit MT QID #16 oz 07/07/18 Hydroxychloroquine Sulfate [Hydroxychloroquine Sulfat] 200 mg PO DAILY 02/16/19 Sertraline HCl [Zoloft] 50 mg PO DAILY 02/16/19 Sucralfate Tab [Carafate Tab] 1 gm PO QID 02/16/19 Review of Systems - Review of Systems Constitutional: States: malaise EENTM: States: no symptoms reported Respiratory: States: no symptoms reported Cardiology: States: no symptoms reported Gastrointestinal/Abdominal: States: abdominal pain - epigastric, diarrhea, nausea Genitourinary: States: no symptoms reported Musculoskeletal: States: see HPI - generalized myalgias for the last few days as well as chronic diffuse joint pain Skin: States: no symptoms reported Neurological: States: anxiety Endocrine: States: no symptoms reported All other Systems: No Change from Baseline Past Medical History (General) - Patient Medical History Hx Seizures: No Hx Stroke: No Hx Dementia: No Hx Asthma: No Hx of COPD: Yes Hx Cardiac Disorders: No Hx Congestive Heart Failure: No Hx Pacemaker: No Hx Hypertension: No Hx Thyroid Disease: No Hx Diabetes: No Hx Gastroesophageal Reflux: Yes Hx Renal Disease: No Hx Cancer: No Hx of HIV: No Hx Hepatitis C: No Hx MRSA: No Surgical History: cholecystectomy, other - Vaccination History Hx Tetanus, Diphtheria Vaccination: No Hx Influenza Vaccination: Yes Hx Pneumococcal Vaccination: No - Social History Hx Tobacco Use: Yes Hx Alcohol Use: No Hx Substance Use: No Hx Physical Abuse: No Hx Emotional Abuse: No - Female History Patient : No Family Medical History - Family History Father Living Status: Age at (years of age): 61 Cause of : Lung Disease H2S gas Mother Age (years): 73 Living Status: Still Living Hx Family Hypertension: Yes Hx Family Diabetes: Yes Physical Exam - Physical Exam General Appearance: Alert, Anxious, Other - uncomfortable Eye Exam: bilateral normal Ears, Nose, Throat: hearing grossly normal, normal pharynx Neck: full range of motion Respiratory: lungs clear, normal breath sounds, no respiratory distress, no accessory muscle use Cardiovascular/Chest: normal peripheral pulses, regular rate, rhythm, no edema Peripheral Pulses: radial,right: 2+, radial,left: 2+, dorsalis pedis,right: 2+, dorsalis pedis,left: 2+ Gastrointestinal/Abdominal: soft, other - the patient does have epigastric tenderness to palpation. No definite rebound. Pain does appear fairly localized. Rectal Exam: deferred Back Exam: no CVA tenderness Extremity: no pedal edema, no calf tenderness, normal capillary refill, other - the patient does have diffuse tenderness to palpation of musculature as well as of joints. She does have some chronic inflammation of joints as well. 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 nml as tested, alert, oriented x 3, other - the patient does appear depressed and anxious Skin Exam: normal color Comments: Vital Signs - 24 hr 02/16/19 02/16/19 02/16/19 12:24 13:17 14:00 Temperature 98.6 F 98.2 F Pulse Rate [ 80 76 73 left brachial] Respiratory 20 20 12 Rate Blood Pressure 140/86 146/81 132/79 [left brachial] O2 Sat by Pulse 95 95 97 Oximetry Progress - Progress Progress: 02/16/19 14:35 the patient is a 59-year-old female presenting to the emergency room secondary to increasing generalized body aches as well as worsening epigastric pain that appears to be due to gastritis based on the CT scan and physical exam. CT scan was performed yesterday as an outpatient. Laboratory work appears to be fairly stable when compared to lab work from 2 days ago. The patient does have a long-standing history of some gastritis. She is being dosed with IV Protonix, Carafate and a GI cocktail here. She may be having increased generalized pain due to the gastritis however it is possible she may be having myalgias or myopathy from the Plaquenil. Plaquenil can also be making the gastritis worse. No evidence of perforation at this time. A Helicobacter pylori test will be sent on the stool. She is receiving a liter of IV fluids. She is receiving IV pain medications. Anti-inflammatories are being held otherwise. She has been given a dose of IV Solu-Medrol to help reduce generalized inflammation associated primarily with her rheumatoid. The patient will be admitted overnight for pain control and monitoring. The patient and her are in agreement with this. The patient will need to follow with her primary care doctor for her long-standing right lower lobe pulmonary nodule. admit for pain control and treatment of gastritis. Recommend holding the Plaquenil until her stomach is doing a little bit better. No overt evidence of any infection has been found. A blood culture was done. - Results/Orders Results/Orders: acute abdominal series shows the persistent right lower lobe lung nodule present since 2006. No evidence of obstruction or free air. EKG shows sinus rhythm at approximately 100 bpm. Normal axis. Normal R-wave progression. Left atrial dilation. Prominent T waves. No definitive ST segment or T-wave changes indicative of acute ischemia. Prolonged QT interval. Laboratory Tests 02/16/19 02/16/19 02/16/19 12:51 12:51 12:51 WBC 8.2 RBC 4.66 Hgb 15.2 Hct 45.1 MCV 96.9 MCH 32.5 H MCHC 33.6 RDW 13.3 Plt Count 269 MPV 6.6 L Absolute Neuts (auto) 5.90 Absolute Lymphs (auto) 1.50 Absolute Monos (auto) 0.70 Absolute Eos (auto) 0.10 Absolute Basos (auto) 0.00 Neutrophils % 71.1 Lymphocytes % 18.1 L Monocytes % 9.1 H Eosinophils % 1.1 Basophils % 0.6 PT 10.8 INR 1.08 PTT (SP) 24.1 Sodium 137 Potassium 4.1 Chloride 97 L Carbon Dioxide 28 Anion Gap 16.1 BUN 8 Creatinine 0.78 BUN/Creatinine Ratio 10.3 Random Glucose 100 Serum Osmolality 272.2 L Lactic Acid Calcium 9.9 Magnesium 2.0 Total Bilirubin 0.6 AST 19 ALT 14 Alkaline Phosphatase 74 Creatine Kinase 37 CK-MB (CK-2) 1.4 CK-MB (CK-2) % Not Reportable Troponin I < 0.02 B-Natriuretic Peptide 14.0 Serum Total Protein 8.1 Albumin 4.7 Globulin 3.4 Albumin/Globulin Ratio 1.4 Amylase 76 Lipase 37 D TSH 1.40 Urine Color Urine Appearance Urine pH Ur Specific [place] Urine Protein Urine Glucose (UA) Urine Ketones Urine Blood Urine Nitrite Urine Bilirubin Urine Urobilinogen Ur Leukocyte Esterase Urine RBC Urine WBC Ur Epithelial Cells Urine Bacteria 02/16/19 02/16/19 12:51 13:45 WBC RBC Hgb Hct MCV MCH MCHC RDW Plt Count MPV Absolute Neuts (auto) Absolute Lymphs (auto) Absolute Monos (auto) Absolute Eos (auto) Absolute Basos (auto) Neutrophils % Lymphocytes % Monocytes % Eosinophils % Basophils % PT INR PTT (SP) Sodium Potassium Chloride Carbon Dioxide Anion Gap BUN Creatinine BUN/Creatinine Ratio Random Glucose Serum Osmolality Lactic Acid 1.0 Calcium Magnesium Total Bilirubin AST ALT Alkaline Phosphatase Creatine Kinase CK-MB (CK-2) CK-MB (CK-2) % Troponin I B-Natriuretic Peptide Serum Total Protein Albumin Globulin Albumin/Globulin Ratio Amylase Lipase TSH Urine Color Yellow Urine Appearance Clear Urine pH 7.0 Ur Specific [place] 1.010 Urine Protein Negative Urine Glucose (UA) Negative Urine Ketones Negative Urine Blood Negative Urine Nitrite Negative Urine Bilirubin Negative Urine Urobilinogen 0.2 Ur Leukocyte Esterase Negative Urine RBC 0 Urine WBC 0-1 Ur Epithelial Cells 0 Urine Bacteria 0 Departure - Departure Clinical Impression: Uncontrolled pain, Myalgia Gastritis Qualifiers: Gastritis type: unspecified gastritis Chronicity: acute Gastritis bleeding: without bleeding Qualified Code(s): K29.00 - Acute gastritis without bleeding Disposition: Admit Patient Condition: Fair Departure Forms: ED Discharge - Pt. Copy, Patient Portal Self Enrollment Referrals: Asael Barreto MD [Primary Care Provider] - 1-2 Weeks Home Medications: Ambulatory Orders HYDROcodone 10MG/APAP 325MG [[place] [address]] 1 ea PO Q4H PRN 10/31/13 Pantoprazole Tablet [Protonix] 40 mg PO ACBK 03/09/15 Albuterol Sulfate Nebs [Proventil Nebs] 2.5 mg INH DAILY 03/18/18 Ascorbic Acid [Vitamin C] 500 mg PO BEDTIME 03/18/18 Hydrochlorothiazide 25 mg PO DAILY 03/18/18 Multiple Vitamins W/ Minerals [Womens Multi] 1 cap PO BEDTIME 03/18/18 Aspirin [Aspirin EC] 81 mg PO BEDTIME 07/03/18 Nystatin (Mouth-Throat) [Nystatin] 100,000 unit MT QID #16 oz 07/07/18 Hydroxychloroquine Sulfate [Hydroxychloroquine Sulfat] 200 mg PO DAILY 02/16/19 Sertraline HCl [Zoloft] 50 mg PO DAILY 02/16/19 Sucralfate Tab [Carafate Tab] 1 gm PO QID 02/16/19 Decision To Admit - Decistion To Admit Decision to Admit Reason: Medical Nature Decision to Admit Date: 02/16/19 Decision to Admit Time: 14:40
--- NOTE | 2019-02-16 14:54 | HP ---
SUPERVISING PHYSICIAN: Geo Gonzalez M.D. CHIEF COMPLAINT: Intractable pain secondary to rheumatoid arthritis. HISTORY OF PRESENT ILLNESS: This is a 59 year-old female with a history of rheumatoid arthritis who came to the Emergency Room due to pain along with nausea and vomiting. She states that on last Thursday she was placed on Plaquenil by her electrician outside. For years she has been treated for rheumatoid arthritis only with narcotic pain medications but then was referred to a electrician outside recently by her primary care physician. He placed her on Plaquenil and she was instructed to take 1 per day and then advance to 2 per day. She started to take 2 per day on Thursday and that is when she started to feel bad with body wide pain along with nausea and vomiting. She had seen her primary care physician yesterday and they got a CT scan of the abdomen. It showed mild wall thickening of the fundus to antrum of the stomach but no other abnormalities. Her labs have been unremarkable. She was referred for admission due to intractable pain as well as secondary to nausea and vomiting. PAST MEDICAL HISTORY: 1. Rheumatoid arthritis. 2. Sleep apnea. 3. Low back pain. 4. Chronic obstructive pulmonary disease. 5. Chronic pain syndrome. 6. Pulmonary nodule in the right lower lobe. 7. Gastroesophageal reflux disease. PAST SURGICAL HISTORY: 1. Left arm surgery. 2. Cholecystectomy. 3. Perforated ulcer repair. CURRENT MEDICATIONS: Please see the medication reconciliation record once it is completed in the computer. ALLERGIES: FLUCONAZOLE, LEVOFLOXACIN AND PENICILLIN G. FAMILY HISTORY: Reviewed and various hypertension and hyperlipidemia. SOCIAL HISTORY: She smokes 1 pack of cigarettes per day. No alcohol. No illicit drugs. REVIEW OF SYSTEMS: CONSTITUTIONAL: No fever or chills. No recent weight loss or weight gain. Positive for malaise. HEENT: Positive for headaches. No vision changes, ear pain, nasal congestion or throat pain. RESPIRATORY: No cough, hemoptysis or pleuritic chest pain. CARDIOVASCULAR: No chest pain, palpitations or peripheral edema. GASTROINTESTINAL: Positive for nausea and vomiting and some epigastric abdominal pain. No diarrhea. No constipation. GENITOURINARY: No dysuria, frequency or flank pain. MUSCULOSKELETAL: She has pain everywhere, she says, but no joint swelling or muscle cramping. SKIN: No rashes, lesions or wounds. ENDOCRINE: No polydipsia, polyuria or polyphagia. No heat or cold intolerance. HEMATOLOGIC: No easy bruising or transfusion reaction. NEUROLOGIC: Negative for seizures, syncope or paresthesias. PHYSICAL EXAMINATION: VITAL SIGNS: Blood pressure 129/83, heart rate 76, respiratory rate 18, temperature 98.2, oxygen saturation 96%. GENERAL: Ms. Arevalo is a 59 year-old female who is in no active distress currently. CHEST: Lungs are clear to auscultation bilaterally. CARDIOVASCULAR: Regular rate and rhythm. Normal S1 and S2. ABDOMEN: Soft. Positive bowel sounds. No tenderness to palpation in the lower quadrants, but she has a little bit of epigastric tenderness to palpation. GENITOURINARY: Exam is deferred. EXTREMITIES: Lower extremities with no edema, 2+ pulses. Capillary refill less than 2 seconds. NEUROLOGIC: The patient is alert and oriented. LABORATORY: Have been reviewed and are unremarkable. ASSESSMENT: 1. Intractable pain secondary to rheumatoid arthritis. 2. Nausea with vomiting including abdominal pain. 3. Chronic obstructive pulmonary disease without an acute exacerbation. 4. Gastroesophageal reflux disease. 5. History of gastric ulcers. PLAN: At this point the patient will be admitted for the intractable pain with some pain control. I am wondering if she had some sort of adverse side effect to the Plaquenil. It is uncertain at this time. She states that she takes 5 to 6 Morgan per day from her primary care physician. I am attempting to get in contact with Dr. Barreto to discuss with him the pain control measures that he has discussed with the patient. For now, I am going to put her on b.i.d. PPI. There is always the concern for a recurrent ulcer. Will monitor her today. Hopefully can go home tomorrow once she is feeling better. #[id number] [facility]
[2019-02-16] MEDS ORDERED: SODIUM CHLORIDE 0.9% (FLUSH) 10 ML SYG IV PRN (16:41)
[2019-02-16] MEDS ORDERED: IV SET AND CAP CHANGE INJ INJ SCH (17:00)
[2019-02-16] MEDS: fentaNYL CITRATE INJ 50 MCG/ML AMP IV PRN ×2 (17:16→20:53)
[2019-02-16] MEDS ORDERED: ACETAMINOPHEN 325 MG TAB ONE (17:25)
[2019-02-16] MEDS: ACETAMINOPHEN 325 MG TAB PO PRN (17:29)
[2019-02-16] MEDS: PANTOPRAZOLE SODIUM TAB 40 MG PO SCH (20:53)
[2019-02-17] MEDS: fentaNYL CITRATE INJ 50 MCG/ML AMP IV PRN ×3 (00:28→07:33)
[2019-02-17] MEDS: PANTOPRAZOLE SODIUM TAB 40 MG PO SCH ×2 (10:46→20:38)
[2019-02-17] MEDS ORDERED: KETOROLAC TROMETHAMINE INJ 30 MG/ML VIAL IV ONE (12:34)
[2019-02-17] MEDS ORDERED: MORPHINE SULFATE INJ 10 MG/ML VIAL IV ONE (12:36)
[2019-02-17] MEDS ORDERED: ONDANSETRON INJ 4 MG/2 ML VIAL IV PRN (12:36)
[2019-02-17] MEDS: methylPREDNISolone SODIUM SUC 40 MG/ML VIAL IV SCH ×2 (12:52→18:30)
[2019-02-17] MEDS: SUCRALFATE 1 GM TAB PO SCH ×3 (12:52→20:38)
[2019-02-17] MEDS ORDERED: ALUM & MAG HYDROX-SIMETHICONE 30 ML UD PO PRN (15:28)
[2019-02-17] MEDS ORDERED: ALUM & MAG HYDROX-SIMETHICONE 30 ML UD ONE (15:39)
[2019-02-17] MEDS: HYDROcodone 10MG/APAP 325MG 1 EA TAB PO PRN ×2 (16:56→20:38)
--- NOTE | 2019-02-17 18:59 | PN ---
DATE: 02/17/19 SUPERVISING PHYSICIAN: Geo Gonzalez M.D. SUBJECTIVE: The patient continues to have a great deal of pain, she says, in all of her joints and her back. She has not had any nausea but she has had an episode of diarrhea today. She has been afebrile. She has had no chest pains. OBJECTIVE: VITAL SIGNS: Temperature 98.3, pulse 64, blood pressure 120/76, respirations 17, satting 94% on room air. GENERAL: The patient does appear unwell but she appears to be in no acute distress. CHEST: Clear to auscultation. HEART: Regular rate and rhythm. ABDOMEN: Soft, non-tender. Positive bowel sounds. EXTREMITIES: Without any edema. NEUROLOGIC: She is alert and oriented times three. LABORATORY: No additional laboratory was completed today as all of her laboratories were within normal limits yesterday. RADIOLOGY: No additional radiographic studies. ASSESSMENT: 1. Intractable pain secondary to rheumatoid arthritis having recently started on Plaquenil. 2. Nausea with vomiting including abdominal pain with associated diarrhea with concerns for possible adverse effect from Plaquenil. 3. Chronic obstructive pulmonary disease without an acute exacerbation. 4. Gastroesophageal reflux disease. 5. History of gastric ulcers. PLAN: I will go ahead and start her on some steroids with Solu-Medrol 40 every 6 hours for 3 doses and see if this will hopefully slow down her rheumatoid pain which I think is a flare-up. Will also give 1 singe dose of Toradol and I will restart her back on her p.r.n. Percival. I have ordered stool studies on her. Will await those results. Will continue to provide pain control and antiemetics as needed and hopefully be able to discharge her by tomorrow. Until then will continue to monitor and treat as needed. #[id number] MTDD
[2019-02-17] MEDS ORDERED: ASPIRIN (ENTERIC COATED) 81 MG TAB PO SCH (21:00)
[2019-02-18] MEDS: methylPREDNISolone SODIUM SUC 40 MG/ML VIAL IV SCH (00:18)
[2019-02-18] MEDS: HYDROcodone 10MG/APAP 325MG 1 EA TAB PO PRN ×4 (00:56→13:36)
[2019-02-18] MEDS: SUCRALFATE 1 GM TAB PO SCH ×2 (06:30→11:41)
[2019-02-18] MEDS: PANTOPRAZOLE SODIUM TAB 40 MG PO SCH (08:56)
[2019-02-18] MEDS ORDERED: SERTRALINE HCL 50 MG TAB PO SCH (09:00)
[2019-02-18] MEDS: ACETAMINOPHEN 325 MG TAB PO PRN (11:09)
[2019-02-18 11:32] VITALS: BP 105/68; TEMP 98; O2SAT 98
--- NOTE | 2019-02-18 21:39 | DS ---
SUPERVISING PHYSICIAN: Geo Gonzalez M.D. ADMISSION DIAGNOSIS: 1. Intractable pain secondary to rheumatoid arthritis. 2. Nausea with vomiting including abdominal pain. 3. Chronic obstructive pulmonary disease without an acute exacerbation. 4. Gastroesophageal reflux disease. 5. History of gastric ulcers. DISCHARGE DIAGNOSIS: 1. Rheumatoid arthritis with acute flare-up having recently started on Plaquenil showing adverse effects with nausea and vomiting requiring some IV pain management and initiation of parenteral steroids with the patient now transitioning to oral medications. 2. Nausea and vomiting with associated gastric discomfort probably associated with the adverse effects from Plaquenil but cannot completely rule out acute gastritis with the patient showing good response to treatment. 3. Chronic obstructive pulmonary disease without an exacerbation. 4. Gastroesophageal reflux disease probably with exacerbation secondary to Plaquenil. 5. History of gastric ulcers without any complications currently. REASON FOR HOSPITALIZATION: This is a 59 year-old female with a history of rheumatoid arthritis who came to the Emergency Room due to pain along with nausea and vomiting. She states that on last Thursday she was placed on Plaquenil by her charge machine operator. For years she has been treated for rheumatoid arthritis only with narcotic pain medications but then was referred to a charge machine operator recently by her primary care physician. He placed her on Plaquenil and she was instructed to take 1 per day and then advance to 2 per day. She started to take 2 per day on Thursday and that is when she started to feel bad with body wide pain along with nausea and vomiting. She had seen her primary care physician yesterday and they got a CT scan of the abdomen. It showed mild wall thickening of the fundus to antrum of the stomach but no other abnormalities. Her labs have been unremarkable. She was referred for admission due to intractable pain as well as secondary to nausea and vomiting. LABORATORY: CBC showed to be within normal limits. Coagulation studies showed normal PT and PTT. Chemistries were essentially within normal limits, just a slightly low chloride at 97. Electrolytes were all normal. BUN 8, creatinine 0.78, lactic acid 1. Liver functions were all within normal limits. Troponin less than 0.02. Lipase was normal at 37. TSH was normal at 1.4. Urinalysis was within normal limits. MICROBIOLOGY: Blood cultures remained negative at 48 hours. RADIOLOGY: She had an abdominal x-ray on admission and per radiology interpretation demonstrated right lower lobe pulmonary nodule measuring 2.8 cm. Recommended followup. There was noted a nonobstructive bowel gas pattern. She also had a CT of the chest in the clinic prior to arrival to the hospital. Please see that result for details. She had a chest x-ray and per radiology interpretation showed again redemonstration of right lower lobe pulmonary nodule measuring 2.8 cm. Recommended followup. Please see that report for details. HOSPITAL COURSE: Ms. Arevalo was admitted for acute flare-up of her rheumatoid arthritis and complications from Plaquenil. She was given antiemetics and had good control of her nausea and no vomiting. She was given some IV Toradol along with Solu-Medrol and did have a good response to treatment, and was showing much better pain control with scheduled Liberty as well. It was felt on the morning of discharge that the patient had shown good improvement well enough to continue with outpatient management. After talking with Dr. Barreto, the patient will discharge on her current pain management with Liberty. She will hold the Plaquenil and she will need to followup with him and her charge machine operator. PLAN: Ms. Arevalo was discharged on 02/18/19 with instructions to call Dr. Barreto and her charge machine operator on Thursday to schedule a followup appointment. She was to resume her home medications as directed and diet as tolerated. Activity is increase as tolerated. She was instructed to return to the hospital or call Dr. Barreto's office or go to the [facility] should she have any worsening or concerning symptoms. Discharge medications included: 1. Medrol Dosepak 4 mg, #21 for a 6 day taper. Take as directed. No refills. All other medications, included: 1. Albuterol inhaler 2.5 mg p.r.n. 2. Carafate 1 gram q.i.d. 3. Zoloft 50 mg daily. 4. Multivitamin 1 capsule daily. 5. Hydrocodone 10/325 one every 4 hours p.r.n. 6. Aspirin 81 mg at bedtime. 7. Ascorbic acid 500 mg at bedtime. 8. Protonix 40 mg daily. She was to hold her Plaquenil until she is seen in followup by her charge machine operator. DISPOSITION: The patient was discharged home. Condition on discharge was stable and improved. #[id number] [facility]
== END 2019-02-18 13:45 | disposition home or self-care (01) ==
LOC: ER 12:10 → MS 14:51
PROVIDERS: ADMIT Nurse Practitioner; ATTEND Nurse Practitioner Family
DX: M06.9 Rheumatoid arthritis, unspecified (principal); R11.2 Nausea with vomiting, unspecified; R10.84 Generalized abdominal pain; J44.9 Chronic obstructive pulmonary disease, unspecified; K21.9 Gastro-esophageal reflux disease without esophagitis; R91.1 Solitary pulmonary nodule; G47.30 Sleep apnea, unspecified; G89.4 Chronic pain syndrome; Z79.1 Long term (current) use of non-steroidal anti-inflammatories (NSAID); Z79.891 Long term (current) use of opiate analgesic; Z79.82 Long term (current) use of aspirin; Z79.899 Other long term (current) drug therapy; Z88.0 Allergy status to penicillin; Z88.1 Allergy status to other antibiotic agents; Z88.8 Allergy status to other drugs, medicaments and biological substances; Z87.19 Personal history of other diseases of the digestive system; Z87.891 Personal history of nicotine dependence; Z90.49 Acquired absence of other specified parts of digestive tract
CPT/HCPCS: 96374; 96375 ×2; 96376 ×3; J3010 ×6; J1885; J1030 ×4; J2270 ×2; J7030; 82553; 80053; 36415; 82150; 81001; 85025; 82550; 87040 ×2; 83690; 83735; 85730; 85610; 84443; 84484; 83880; 83605; 74019; 71046; 99285; 93005; G0378; 87502

== ENCOUNTER → 2019-05-17 | Outpatient (CLI) | payer MEDICARE | LOC: GMA MATASK 14:15 | PROVIDERS: ATTEND Family Medicine | DX: E78.2 Mixed hyperlipidemia (principal) ==

== ENCOUNTER → 2019-11-04 | Outpatient (CLI) | payer MEDICARE | LOC: ECHO 08:37 | DX: R63.5 Abnormal weight gain (principal) ==

== ENCOUNTER 2020-05-03 11:07 | Inpatient (IN) | payer MEDICARE ==
[2020-05-03] MEDS ORDERED: ONDANSETRON INJ 4 MG/2 ML VIAL IV ONE (11:23)
[2020-05-03] MEDS ORDERED: SODIUM CHLORIDE 0.9% (FLUSH) 10 ML SYG IV PRN ×2 (11:23→16:53)
[2020-05-03] MEDS ORDERED: SODIUM CHLORIDE 0.9% 1000ML 1,000 ML IVS ONE (11:24)
--- NOTE | 2020-05-03 11:24 | ED.PDOC ---
History of Present Illness - General Chief Complaint: Abdominal Pain Stated Complaint: abdominal pain Time Seen by Provider: 05/03/20 11:23 Source: patient - History of Present Illness Initial Comments: Patient seen upon ED arrival at 1130. 60-year-old female with past medical history of rheumatoid arthritis, GERD, COPD who presents with chief complaint of epigastric pain. Patient reports chronic history of epigastric pain similar to current which has been going on for several years now. Reports worsening in the past few days and since this morning. Pain is located primarily to epigastric region with some radiation throughout the upper abdomen, constant, 8/10 severity currently, unable to characterize, sometimes worsens with p.o. intake, taking hydrocodone 4 times daily and Protonix 40 mg daily without relief. She additionally reports symptoms of nausea without emesis and a few episodes of watery diarrhea in the past few days. Also reports some rib pain to the left lower chest wallbelieves caused by her trying to help her out of the car a few days ago. Reports chronic cough but unchanged from usual. Denies any fevers, chills, sore throat, body aches, dyspnea, leg swelling, hematemesis, melena, urinary symptoms. PCP is Dr. Delgado. Patient states that she has seen numerous doctors including GI doctors and surgeons for this issue in the past several years. She does report that she had a perforated gastric ulcer in 2004 which was treated at that time. She also has history of cholecystectomy. For her rheumatoid arthritis she previously took frequent oral steroids but has not for a couple years now. She quit smoking 2 years ago. Allergies/Adverse Reactions: Allergies Cefadroxil [From Duricef] Allergy (Verified 05/03/20 11:23) Fluconazole [From Diflucan] Allergy (Verified 05/03/20 11:23) Levofloxacin [From Levaquin] Allergy (Verified 05/03/20 11:23) Penicillin G Allergy (Verified 05/03/20 11:23) Home Medications: Ambulatory Orders HYDROcodone 10MG/APAP 325MG [[place] [address]] 1 ea PO Q4H PRN 10/31/13 Pantoprazole Tablet [Protonix] 40 mg PO ACBK 03/09/15 Albuterol Sulfate Nebs [Proventil Nebs] 2.5 mg INH PRN PRN 03/18/18 Ascorbic Acid [Vitamin C] 500 mg PO BEDTIME 03/18/18 Multiple Vitamins W/ Minerals [Womens Multi] 1 cap PO BEDTIME 03/18/18 Aspirin [Aspirin EC] 81 mg PO BEDTIME 07/03/18 Sertraline HCl [Zoloft] 50 mg PO DAILY 02/16/19 Sucralfate Tab [Carafate Tab] 1 gm PO QID 02/16/19 Methylprednisolone [Medrol Dose Nakul] 4 mg PO DAILY 6 Days #21 tab 02/18/19 Sucralfate Suspension [Carafate Suspension] 1 gm PO ACHS PRN 30 Days #420 ml 05/03/20 Review of Systems - Review of Systems Review of Systems: 05/03/20 11:44 as per HPI All other Systems: Reviewed and Negative Past Medical History (General) - Patient Medical History Hx Seizures: No Hx Stroke: No Hx Dementia: No Hx Asthma: No Hx of COPD: Yes Hx Cardiac Disorders: No Hx Congestive Heart Failure: No Hx Pacemaker: No Hx Hypertension: No Hx Thyroid Disease: No Hx Diabetes: No Hx Gastroesophageal Reflux: Yes Hx Renal Disease: No Hx Cancer: No Hx of HIV: No Hx Hepatitis C: No Hx MRSA: No Surgical History: cholecystectomy - Vaccination History Hx Tetanus, Diphtheria Vaccination: No Hx Influenza Vaccination: Yes Hx Pneumococcal Vaccination: No - Social History Hx Tobacco Use: Yes Hx Alcohol Use: No Hx Substance Use: No Hx Physical Abuse: No Hx Emotional Abuse: No - Female History Patient is a Female of Child Bearing Age (10 -59 yrs old): No Patient : No Family Medical History - Family History Father Living Status: Age at (years of age): 61 Cause of : Lung Disease H2S gas Mother Age (years): 73 Living Status: Still Living Hx Family Hypertension: Yes Hx Family Diabetes: Yes Physical Exam - Physical Exam General Appearance: Alert, Comfortable, No apparent distress Eye Exam: bilateral normal Ears, Nose, Throat: hearing grossly normal, normal ENT inspection, normal pharynx Neck: normal inspection Respiratory: lungs clear, normal breath sounds, no respiratory distress, other - Left lower chest wall with moderate ttp w/o bruising or deformity Cardiovascular/Chest: normal peripheral pulses, regular rate, rhythm, no edema, no gallop, no JVD, no murmur Peripheral Pulses: radial,right: 2+, radial,left: 2+ Gastrointestinal/Abdominal: soft, abnormal bowel sounds - diminished throughout, tenderness - moderate to epigastric region with some guarding, no noted distension Back Exam: normal inspection, no CVA tenderness, no vertebral tenderness Extremity: normal range of motion, non-tender, normal inspection, no pedal edema, no calf tenderness 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 Rapid Covid and flu testing. XR chest & abdomen, consider CT imaging. -Place peripheral IV, 1 L normal saline bolus, Zofran 4 mg IV, GI cocktail, reassess 05/03/20 12:07 -Patient reports little improvement with GI cocktail and Zofran. We will give dose of fentanyl 50 mcg IV. Initial lab work is pertinent for rapid Covid testing positive. Otherwise CBC and CMP is largely unremarkable. -Review of the patient's chart shows her last CT imaging of the abdomen was in 02/2019 which revealed only thickening of the fundus of the stomach at that time. There was some elongation of the right lobe of the liver without any hepatic masses noted. Given her chronic/frequent pain we will repeat the CT of the abdomen and pelvis at this time. 05/03/20 14:24 -CT imaging of the abdomen and pelvis revealed no acute processes. I suspect that the patient's primary cause of her abdominal discomfort is likely acute gastritis. COVID-19 may also be contributing with a gastroenteritis-like picture as well. While in the ED the patient was noted to have SPO2 decreased to 86% on room air and required supplemental nasal cannula oxygen. Therefore I discussed the patient further with Kalli Richardson the hospitalist who accepts the patient for admission for COVID-19 with acute hypoxia and epigastric abdominal pain. We will begin treatment in the ED with Decadron 6 mg IV. Irineo Gonzalez MD Billing #[id number] 05/03/20 11:23 IV Care:Saline Lock per Protoc QSHIFT Sodium Chloride 0.9% (Flush) [Saline Flush Syringe] 10 ml IV PRN PRN 05/03/20 11:30 EKG STAT 05/03/20 12:02 Hold Metformin x 48Hrs [id number] 05/03/20 12:21 Isolation:Airborne ONCE 05/03/20 14:12 URINALYSIS Stat Laboratory Results - last 24 hr 05/03/20 05/03/20 05/03/20 11:27 11:27 11:27 WBC 4.8 RBC 4.20 Hgb 13.3 Hct 39.8 MCV 94.6 MCH 31.7 H MCHC 33.5 RDW 13.5 Plt Count 232 MPV 6.7 L Absolute Neuts (auto) 3.60 Absolute Lymphs (auto) 0.60 L Absolute Monos (auto) 0.60 Absolute Eos (auto) 0.00 Absolute Basos (auto) 0.00 Neutrophils % 74.3 Lymphocytes % 12.2 L Monocytes % 12.5 H Eosinophils % 0.2 L Basophils % 0.8 PTT (SP) D-Dimer, Quantitative Sodium 136 Potassium 3.8 Chloride 101 Carbon Dioxide 25 Anion Gap 13.8 BUN 7 Creatinine 0.67 BUN/Creatinine Ratio 10.4 Random Glucose 130 H Serum Osmolality 271.7 L Lactic Acid 0.9 Calcium 8.7 Magnesium Total Bilirubin 0.3 Direct Bilirubin < 0.1 Indirect Bilirubin 0.2 AST 23 ALT 13 Alkaline Phosphatase 71 LD Total Creatine Kinase Troponin I C-Reactive Protein B-Natriuretic Peptide Serum Total Protein 7.1 Albumin 3.8 Amylase 56 Lipase 32 05/03/20 05/03/20 05/03/20 11:27 11:27 11:27 WBC RBC Hgb Hct MCV MCH MCHC RDW Plt Count MPV Absolute Neuts (auto) Absolute Lymphs (auto) Absolute Monos (auto) Absolute Eos (auto) Absolute Basos (auto) Neutrophils % Lymphocytes % Monocytes % Eosinophils % Basophils % PTT (SP) 28.7 D-Dimer, Quantitative < 131.0 L Sodium Potassium Chloride Carbon Dioxide Anion Gap BUN Creatinine BUN/Creatinine Ratio Random Glucose Serum Osmolality Lactic Acid Calcium Magnesium Total Bilirubin Direct Bilirubin Indirect Bilirubin AST ALT Alkaline Phosphatase LD Total Creatine Kinase Troponin I < 0.02 C-Reactive Protein B-Natriuretic Peptide 112.0 H Serum Total Protein Albumin Amylase Lipase 05/03/20 11:27 WBC RBC Hgb Hct MCV MCH MCHC RDW Plt Count MPV Absolute Neuts (auto) Absolute Lymphs (auto) Absolute Monos (auto) Absolute Eos (auto) Absolute Basos (auto) Neutrophils % Lymphocytes % Monocytes % Eosinophils % Basophils % PTT (SP) D-Dimer, Quantitative Sodium Potassium Chloride Carbon Dioxide Anion Gap BUN Creatinine BUN/Creatinine Ratio Random Glucose Serum Osmolality Lactic Acid Calcium Magnesium 1.8 Total Bilirubin Direct Bilirubin Indirect Bilirubin AST ALT Alkaline Phosphatase LD Total 149 Creatine Kinase 38 Troponin I C-Reactive Protein 1.7 H B-Natriuretic Peptide Serum Total Protein Albumin Amylase Lipase - EKG/XRAY/CT EKG: Sinus - Normal sinus rhythm, heart rate 80, no ST elevations or Q waves noted, nonspecific minor T wave inversions noted in aVL, axis normal, intervals normal, compared to 02/16/2019 EKG appears largely unchanged XRAY: chest - approx 3 cm pulmonary nodule noted in RLL, appears stable/unchanged from prior. Also noted streaky infiltrate RLL suspicious for infectious etiology per my read - Additional EKG/XRAY/Consults XRAY #2: abdomen - nonspecific nonobstructive bowel gas pattern per my read Departure - Departure Clinical Impression: COVID-19, Hypoxia Gastritis Qualifiers: Gastritis type: unspecified gastritis Chronicity: acute Gastritis bleeding: without bleeding Qualified Code(s): K29.00 - Acute gastritis without bleeding Time of Disposition: 14:24 Disposition: Admit Patient Condition: Fair Departure Forms: ED Discharge - Pt. Copy, Patient Portal Self Enrollment Instructions: DI for Abdominal Pain-Adult Diet: other - GERD diet Referrals: Asael Barreto MD [Primary Care Provider] - 1-2 Weeks Prescriptions: Sucralfate Suspension [Carafate Suspension] 1 gm PO ACHS PRN 30 Days #420 ml PRN Reason: Heartburn Home Medications: Ambulatory Orders HYDROcodone 10MG/APAP 325MG [[place] 325] 1 ea PO Q4H PRN 10/31/13 Pantoprazole Tablet [Protonix] 40 mg PO ACBK 03/09/15 Albuterol Sulfate Nebs [Proventil Nebs] 2.5 mg INH PRN PRN 03/18/18 Ascorbic Acid [Vitamin C] 500 mg PO BEDTIME 03/18/18 Multiple Vitamins W/ Minerals [Womens Multi] 1 cap PO BEDTIME 03/18/18 Aspirin [Aspirin EC] 81 mg PO BEDTIME 07/03/18 Sertraline HCl [Zoloft] 50 mg PO DAILY 02/16/19 Sucralfate Tab [Carafate Tab] 1 gm PO QID 02/16/19 Methylprednisolone [Medrol Dose [place]ul] 4 mg PO DAILY 6 Days #21 tab 02/18/19 Sucralfate Suspension [Carafate Suspension] 1 gm PO ACHS PRN 30 Days #420 ml 05/03/20 Decision To Admit - Decistion To Admit Decision to Admit Reason: Admit from ER Decision to Admit Date: 05/03/20 Decision to Admit Time: 14:24
[2020-05-03] MEDS ORDERED: ALUM & MAG HYDROX-SIMETHICONE 30 ML, LIDOCAINE VISCOUS 2% 15 ML PO ONE ×2 (11:39)
[2020-05-03] MEDS ORDERED: fentaNYL CITRATE INJ 50 MCG/ML 2 ML AMP IV ONE (12:06)
--- NOTE | 2020-05-03 12:07 | RAD ---
EXAM: Chest,1 View CLINICAL HISTORY: epigastric pain, left lower chest wall pain TECHNIQUE: Chest 1 view COMPARISON STUDY: CT chest from July 05, 2018 and 2 view chest x-ray from February 16, 2019 FINDINGS: Hyperexpansion without consolidation, effusion, or edema. The right lower lobe mass is again identified and measures 2.4 x 2.2 cm, not significantly changed. The heart is not enlarged. No acute osseous abnormality. IMPRESSION: 1. Hyperexpansion can be seen with emphysema, reactive airway disease or deep voluntary breath. No acute abnormality is identified. 2. Right lower lobe mass is unchanged in size or configuration from prior studies, continued follow-up as clinically indicated. Electronically signed by: Mikey Bell MD 05/03/2020 12:05 PM [facility]
--- NOTE | 2020-05-03 12:08 | RAD ---
EXAM: Abdomen 1 View CLINICAL HISTORY: epigastric pain, left lower chest wall pain COMPARISON STUDY: None. TECHNICAL: KUB FINDINGS: Non-obstructive gas pattern. The bony structures are grossly normal. No abnormal calcifications. Cholecystectomy clips are present. IMPRESSION: NO ACUTE ABNORMALITY IDENTIFIED. Electronically signed by: Mikey Bell MD 05/03/2020 12:06 PM [employer]
--- NOTE | 2020-05-03 12:40 | CT ---
EXAM DESCRIPTION: Abdomen/Pelvis w/Contrast CLINICAL HISTORY: 60 years Female, acute on chronic epigastric abdominal pain TECHNIQUE: This exam was performed according to our departmental dose-optimization program, which includes automated exposure control, adjustment of the mA and/or kV according to patient size and/or use of iterative reconstruction technique. COMPARISON: 02/15/2019 FINDINGS: Redemonstrated right lower lobe pulmonary nodule measuring 2.5 cm. Bibasilar volume loss. No focal consolidation or suspicious pulmonary nodule. No focal hepatic lesion. Similar biliary prominence status post cholecystectomy which is likely due to reservoir phenomenon. The portal vein is patent. The spleen, pancreas and adrenal glands are unremarkable. Symmetric renal parenchymal enhancement. No hydronephrosis. No urolithiasis. Unremarkable bladder. No suspicious adnexal lesion. No evidence of bowel obstruction or focal inflammatory change. No findings to suggest appendicitis. Normal appendix. No adenopathy. No focal fluid collection. No free air. Normal caliber abdominal aorta. Mild diffuse atherosclerotic disease. No acute or suspicious osseous abnormality. Scattered degenerative changes present. IMPRESSION: 1. No evidence of acute process in the abdomen or pelvis. 2. Stable right lower lobe pulmonary nodule measuring 2.5 cm. Electronically signed by: Isaias Salcedo MD 05/03/2020 12:39 PM [employer]
[2020-05-03] MEDS ORDERED: DEXAMETHASONE INJ 4 MG/ML VIAL IV ONE (14:19)
--- NOTE | 2020-05-03 15:17 | HP ---
SUPERVISING PHYSICIAN: Zeyad Copeland MD CHIEF COMPLAINT: Upper GI pain with abdominal pain, nausea or vomiting. HISTORY OF PRESENT ILLNESS: This is a 60 year-old female patient who came to the Emergency Room due to epigastric pain with nausea or vomiting. She does have a history of chronic epigastric pain and has been to multiple doctors and had multiple testing and her abdominal pain is of unknown etiology as of this point. She did say that the nausea and vomiting was somewhat worse than what her typical episodes are but the pain in her abdomen was not. She also had a complaint of coughing. She quit smoking almost two years ago but has a significant history of chronic obstructive pulmonary disease and actually wears oxygen at night if needed. She used to wear oxygen 24 hours a day but has progressed off of that. Her Covid-19 testing was positive. Her initial vital signs were temperature of 99.2, heart rate of 78, blood pressure 126/77, respiratory rate 18, oxygen saturation 93% on 2 liters nasal cannula. Multiple times they tried to discontinue her oxygen and she dropped down to 86%, especially with any kind of exertion. Her lab studies showed CBC that was basically unremarkable. Her D-dimer was less than 131. Electrolytes were within normal limits. Serum osmolality was 271.7. Liver enzymes were normal. BNP was 112, troponin less than 0.02. Urinalysis was unremarkable. Chest x-ray showed, (1) Hyperexpansion can be seen with emphysema, reactive airway disease or deep voluntary breaths, no acute abnormalities identified. (2) Right lower lobe mass unchanged in size or configuration from prior study. Abdominal x-ray shows no acute abnormality identified. She was given Zofran, some fluids in the Emergency Room as well as some pantoprazole and she was admitted to the hospital. PAST MEDICAL HISTORY: 1. Rheumatoid arthritis. 2. Sleep apnea. 3. Chronic low back pain. 4. Chronic obstructive pulmonary disease. 5. Chronic pain syndrome on hydrocodone, 6. Pulmonary nodule in the right lower lobe that is unchanged. 7. Gastroesophageal reflux disease. 8. Chest epigastric pain. PAST SURGICAL HISTORY: 1. Left arm surgery. 2. Cholecystectomy. 3. Perforated ulcer repair. CURRENT MEDICATIONS: Per the EMR. ALLERGIES: FLUCONAZOLE, LEVAQUIN, PENICILLIN AND CEFADROXIL. FAMILY HISTORY: Positive for hypertension and hyperlipidemia. SOCIAL HISTORY: She previously smoked for many years but quit almost 2 years ago. Denies ETOH or illicit drug use. REVIEW OF SYSTEMS: Negative except as per history of present illness. PHYSICAL EXAMINATION: VITAL SIGNS: Temperature 98.9, heart rate 70, blood pressure 100/63, respiratory rate 17, oxygen saturation 97%, it does drop to the low 90s with any exertion. GENERAL: This is a 60 year-old female patient who is lying in her hospital bed and in no active distress. HEENT: Normocephalic and atraumatic. Oropharynx is clear. RESPIRATORY: Diminished temperature of but otherwise clear to auscultation. CARDIAC: Regular rate and rhythm. ABDOMEN: Soft, nondistended. Mildly but diffusely tender especially in the epigastric area. There is no rebound tenderness or guarding. EXTREMITIES: No cyanosis, clubbing, or edema. NEUROLOGIC: The patient is awake, alert and oriented x3. LABORATORY: Followup laboratory shows CBC is unremarkable. D-dimer is less than 131, electrolytes are within normal limits. C-reactive protein is down to 0.9. Chest CT shows` 1. Unchanged 0.5 cm right lower lobe mass. 2. Chronic lung changes and interstitial edema. Imaging features are atypical or uncommonly reported for Covid-19 pneumonia, Abdomen/Pelvis CT shows: 1. No evidence of acute process in the abdomen or pelvis. 2. Stable right lower lobe pulmonary nodule measuring 2.4 cm. ASSESSMENT: 1. Covid-19 pneumonitis with exertional hypoxia. 2. Nausea and vomiting with epigastric pain. 3. Chronic obstructive pulmonary disease with mild exacerbation secondary to #1. 4. Chronic epigastric pain of unknown etiology. 5. Chronic pain syndrome. 6. Rheumatoid arthritis. 7. Unchanged right lower lobe pulmonary nodule that is 2.5 cm. 8. Gastroesophageal reflux disease. PLAN: The patient has been admitted to the hospital. She has been started on the Covid-19 guidelines and we will continue with the guidelines including the medications. She will have Lovenox for DVT prophylaxis, Align and guaifenesin. She will have aggressive pulmonary hygiene including p.r.n. and scheduled albuterol. Her lab is fairly stable but she does have fairly significant exertional hypoxia. We will need to get an ambulation study in the next day or so, although she does have oxygen at home if needed. We will continue to monitor her closely and treat as needed. #[id number] [facility]
[2020-05-03] MEDS ORDERED: REMDESIVIR 200 MG in SODIUM CHLORIDE 0.9% 250ML 250 ML IVPB ONE (16:49)
[2020-05-03] MEDS ORDERED: ALBUTEROL INHALER 64 PUFF/8GM INH PRN (16:50)
[2020-05-03] MEDS ORDERED: ACETAMINOPHEN 325 MG TAB PO PRN (16:53)
[2020-05-03] MEDS ORDERED: ONDANSETRON INJ 4 MG/2 ML VIAL IV PRN (16:53)
[2020-05-03] MEDS ORDERED: IV SET AND CAP CHANGE INJ INJ SCH (17:00)
[2020-05-03] MEDS ORDERED: SODIUM CHLORIDE 0.9% 250ML 250 ML ONE ×2 (17:11→19:31)
[2020-05-03] MEDS ORDERED: REMDESIVIR IV 100 MG VIAL ONE (17:11)
[2020-05-03] MEDS ORDERED: HYDROmorphone HCL INJ 2 MG/ML VIAL IV ONE (17:42)
[2020-05-03] MEDS ORDERED: MORPHINE SULFATE INJ 10 MG/ML VIAL IV ONE (17:47)
[2020-05-03] MEDS ORDERED: guaiFENesin ER TAB 600 MG TAB ONE (19:30)
[2020-05-03] MEDS ORDERED: GABAPENTIN 300 MG CAP ONE (19:30)
[2020-05-03] MEDS ORDERED: AZITHROMYCIN IV 500 MG VIAL IVPB ONE (19:30)
[2020-05-03] MEDS ORDERED: ASPIRIN (ENTERIC COATED) 81 MG TAB PO ONE (19:30)
[2020-05-03] MEDS ORDERED: SODIUM CHLORIDE 0.9% (FLUSH) 10 ML SYG ONE (19:31)
--- NOTE | 2020-05-03 19:36 | CT ---
PROCEDURE: CT Chest Without Intravenous Contrast CLINICAL INDICATION: The patient is 60 years old and is Female; covid TECHNIQUE: Axial computed tomography images of the chest without intravenous contrast. Sagittal and coronal reformatted images were created and reviewed. This CT exam was performed using one or more of the following dose reduction techniques: automated exposure control, adjustment of the mA and/or kV according to patient size, and/or use of iterative reconstruction technique. DLP: 443 mGy*cm COMPARISON: CT chest dated July 05, 2018. FINDINGS: LUNGS: Unchanged right lower lobe mass measuring 2.5 x 1.9 cm. Interlobular septal thickening. Apical predominant emphysematous changes. Mild bibasilar atelectasis. PLEURAL SPACE: Unremarkable. No pneumothorax. No significant effusion. HEART: Unremarkable. No cardiomegaly. No significant pericardial effusion. BONES/JOINTS: Diffuse osteopenia. No acute fracture. No dislocation. SOFT TISSUES: Unremarkable. VASCULATURE: Atherosclerotic vascular calcifications. No thoracic aortic aneurysm. LYMPH NODES: Unremarkable. No enlarged lymph nodes. GALLBLADDER AND BILE DUCTS: Prior cholecystectomy. IMPRESSION: 1. Unchanged 2.5 cm right lower lobe mass. 2. Chronic lung changes and/or interstitial edema. Imaging features are atypical or uncommonly reported for COVID-19 pneumonia. Alternative diagnoses should be considered. [PneAty] Electronically signed by: Tripp Busch DO 05/03/2020 7:34 PM [facility]
[2020-05-03] MEDS: HYDROcodone 10MG/APAP 325MG 1 EA TAB PO PRN (19:40)
[2020-05-03] MEDS ORDERED: cefTRIAXone SODIUM 1 GM in SODIUM CHL 0.9% 50ML MIN-BAG+ 50 ML IVPB SCH (20:00)
[2020-05-03] MEDS: ALBUTEROL INHALER 64 PUFF/8GM INH SCH (20:15)
[2020-05-03] MEDS ORDERED: QUEtiapine FUMARATE 25 MG TAB PO ONE (20:30)
[2020-05-03] MEDS: SODIUM CHLORIDE 0.9% (FLUSH) 10 ML SYG IV SCH (20:35)
[2020-05-03] MEDS: GABAPENTIN 300 MG CAP PO SCH (20:35)
[2020-05-03] MEDS: ASPIRIN (ENTERIC COATED) 81 MG TAB PO SCH (20:35)
[2020-05-03] MEDS: guaiFENesin ER TAB 600 MG TAB PO SCH (20:35)
[2020-05-03] MEDS ORDERED: AZITHROMYCIN IV 500 MG in SODIUM CHLORIDE 0.9% 250ML 250 ML IVPB ONE (21:00)
[2020-05-04] MEDS: HYDROcodone 10MG/APAP 325MG 1 EA TAB PO PRN ×5 (02:54→21:49)
[2020-05-04] MEDS ORDERED: PANTOPRAZOLE SODIUM IV 40 MG VIAL ONE (03:57)
[2020-05-04] MEDS: PANTOPRAZOLE SODIUM IV 40 MG VIAL IV SCH (05:44)
[2020-05-04] MEDS ORDERED: BIFIDOBACTERIUM INFANTIS 4 MG CAP ONE (07:25)
[2020-05-04] MEDS ORDERED: FLUoxetine HCL 20 MG CAP ONE (07:25)
[2020-05-04] MEDS ORDERED: DEXAMETHASONE INJ 10 MG/ML VIAL ONE (07:25)
[2020-05-04] MEDS: ALBUTEROL INHALER 64 PUFF/8GM INH SCH ×4 (07:30→20:20)
[2020-05-04] MEDS: GABAPENTIN 300 MG CAP PO SCH ×3 (08:25→20:22)
[2020-05-04] MEDS: SODIUM CHLORIDE 0.9% (FLUSH) 10 ML SYG IV SCH ×2 (08:25→20:22)
[2020-05-04] MEDS: guaiFENesin ER TAB 600 MG TAB PO SCH ×2 (08:26→20:22)
[2020-05-04] MEDS: DEXAMETHASONE INJ 10 MG/ML VIAL IV SCH (08:26)
[2020-05-04] MEDS: BIFIDOBACTERIUM INFANTIS 4 MG CAP PO SCH (08:26)
[2020-05-04] MEDS: FLUoxetine HCL 20 MG CAP PO SCH (08:26)
[2020-05-04] MEDS: AZITHROMYCIN IV 500 MG in SODIUM CHLORIDE 0.9% 250ML 250 ML IVPB SCH (10:47)
[2020-05-04] MEDS: REMDESIVIR 100 MG in SODIUM CHLORIDE 0.9% 250ML 250 ML IVPB SCH (13:06)
[2020-05-04] MEDS ORDERED: ENOXAPARIN SODIUM 40 MG/0.4 ML SYG SUBCU ONE (19:01)
[2020-05-04] MEDS: ASPIRIN (ENTERIC COATED) 81 MG TAB PO SCH (20:22)
[2020-05-04] MEDS ORDERED: ENOXAPARIN SODIUM 40 MG/0.4 ML SYG SUBCU SCH (21:00)
[2020-05-05] MEDS: HYDROcodone 10MG/APAP 325MG 1 EA TAB PO PRN ×3 (01:54→10:39)
[2020-05-05] MEDS: PANTOPRAZOLE SODIUM IV 40 MG VIAL IV SCH (05:55)
--- NOTE | 2020-05-05 06:53 | RAD ---
PROCEDURE:XR CHEST 1 VIEW HISTORY:covid COMPARISON: May 03, 2020 FINDINGS: The heart appears unremarkable. There is a stable mass in the right lower lobe with linear atelectatic changes seen within the right lower lobe. There are diffuse emphysematous changes in both lungs similar to the prior exam. There are no acute bony or soft tissue abnormalities. IMPRESSION: Stable chest x-ray. Electronically signed by: Daniel Frost MD 05/05/2020 6:52 AM [facility]
[2020-05-05] MEDS: guaiFENesin ER TAB 600 MG TAB PO SCH (08:35)
[2020-05-05] MEDS: GABAPENTIN 300 MG CAP PO SCH ×2 (08:35→15:13)
[2020-05-05] MEDS: DEXAMETHASONE INJ 10 MG/ML VIAL IV SCH (08:35)
[2020-05-05] MEDS: BIFIDOBACTERIUM INFANTIS 4 MG CAP PO SCH (08:35)
[2020-05-05] MEDS: FLUoxetine HCL 20 MG CAP PO SCH (08:35)
[2020-05-05] MEDS: SODIUM CHLORIDE 0.9% (FLUSH) 10 ML SYG IV SCH (08:36)
[2020-05-05] MEDS: ALBUTEROL INHALER 64 PUFF/8GM INH SCH ×2 (08:45→13:35)
[2020-05-05] MEDS: AZITHROMYCIN IV 500 MG in SODIUM CHLORIDE 0.9% 250ML 250 ML IVPB SCH (08:47)
[2020-05-05 13:25] VITALS: BP 120/62; TEMP 97.7; O2SAT 92
[2020-05-05] MEDS: REMDESIVIR 100 MG in SODIUM CHLORIDE 0.9% 250ML 250 ML IVPB SCH (14:58)
--- NOTE | 2020-05-07 09:25 | DS ---
SUPERVISING PHYSICIAN: Zeyad Copeland MD ADMISSION DIAGNOSIS: 1. COVID-19 pneumonitis with exertional hypoxia. 2. Nausea and vomiting with epigastric pain. 3. Chronic obstructive pulmonary disease with mild exacerbation secondary to #1. 4. Chronic epigastric pain of unknown etiology. 5. Chronic pain syndrome. 6. Rheumatoid arthritis. 7. Unchanged right lower lobe pulmonary nodule that is 2.5 cm. 8. Gastroesophageal reflux disease. DISCHARGE DIAGNOSIS: 1. COVID-19 pneumonitis. 2. Chronic epigastric pain with recent EGD and colonoscopy, followed by Dr. Hoffmann. 3. Chronic obstructive pulmonary disease with mild exacerbation secondary to #1. 4. Chronic pain syndrome. 5. Rheumatoid arthritis. 6. Right lower lobe pulmonary nodule measuring 2.5 cm, followed by Dr. Barreto. 7. Chronic gastroesophageal reflux disease with recent EGD. REASON FOR HOSPITALIZATION: This is a 60 year-old female patient who came to the Emergency Room due to epigastric pain with nausea or vomiting. She does have a history of chronic epigastric pain and has been to multiple doctors and had multiple testing and her abdominal pain is of unknown etiology as of this point. She did say that the nausea and vomiting was somewhat worse than what her typical episodes are but the pain in her abdomen was not. She also had a complaint of coughing. She quit smoking almost two years ago but has a significant history of chronic obstructive pulmonary disease and actually wears oxygen at night if needed. She used to wear oxygen 24 hours a day but has progressed off of that. Her COVID-19 testing was positive. Her initial vital signs were temperature of 99.2, heart rate of 78, blood pressure 126/77, respiratory rate 18, oxygen saturation 93% on 2 liters nasal cannula. Multiple times they tried to discontinue her oxygen and she dropped down to 86%, especially with any kind of exertion. Her lab studies showed CBC that was basically unremarkable. Her D-dimer was less than 131. Electrolytes were within normal limits. Serum osmolality was 271.7. Liver enzymes were normal. BNP was 112, troponin less than 0.02. Urinalysis was unremarkable. Chest x-ray showed, (1) Hyperexpansion can be seen with emphysema, reactive airway disease or deep voluntary breaths, no acute abnormalities identified. (2) Right lower lobe mass unchanged in size or configuration from prior study. Abdominal x-ray shows no acute abnormality identified. She was given Zofran, some fluids in the Emergency Room as well as some pantoprazole and she was admitted to the hospital. LABORATORY: White count on discharge was 5,500. Differential was without a left shift. Coagulation studies showed normal D-dimer. Chemistries were unremarkable with all chemistries within normal limits except for a mildly low total protein at 6.2. C-reactive protein had normalized to less than 0.8. Urinalysis showed trace intact blood. MICROBIOLOGY: Influenza A and B by PCR was negative. Nasal swab for COVID was positive. RADIOLOGY: Chest x-ray on 05/05/20 showed stable chest. Please see those reports for details. She also had abdominopelvic CT that showed no acute process in the abdomen. Again, noted pulmonary nodule in the right lower lobe measuring 2.5 cm. This was followed up with a CT of the chest which again showed unchanged 2.5 cm right lower lobe mass with chronic lung changes. Please see those reports for details. HOSPITAL COURSE: Ms. Arevalo was admitted for acute epigastric discomfort and COVID pneumonitis. She was treated with Decadron, Remdesivir, azithromycin and Rocephin. She did show good response to treatment. Discharge vital signs showed she was maintaining O2 saturations at 97% on 2 liters nasal cannula at rest, blood pressure 120/62, temperature 97.7. PLAN: Ms. Arevalo was discharged on 05/05/20 with instructions to call Dr. Barreto's office on Thursday after discharge. She was to resume her usual diet and increase activity as tolerated. She was to return to the Emergency Room if she had any concerning symptoms. Medications prescribed on discharge included: 1. Align 4 mg daily, #30, no refills. 2. Carafate suspension before meals and at bedtime, 30 days, 120 meals, no refills. 3. Decadron 6 mg daily, #7, no refills. 4. Albuterol inhaler 2 puffs as needed q.4h. She does have home O2 and was encouraged to monitor her O2 levels at home and wear oxygen as indicated if her oxygen level should drop with exertion below 92- 94%. Again, she is to followup with Dr. Barreto on Thursday, call his office for an appointment. CONDITION ON DISCHARGE: Stable and improved. DISPOSITION: The patient was discharged home. #[id number] [facility]
--- NOTE | 2020-05-23 08:08 | PN ---
SUPERVISING PHYSICIAN: Zeyad Copeland MD DATE: 05/04/20 SUBJECTIVE: The patient is sitting up in bed. She is alert, denies chest pain, nausea or vomiting. She still gets quite short of breath easily and has continued to need her oxygen. OBJECTIVE: VITAL SIGNS: Temperature 99.2, heart rate 81, blood pressure 101/68, respiratory rate 18, oxygen saturation 96% on 2 liters nasal cannula. CHEST: Diminished breath sounds throughout. CARDIAC: Regular rate and rhythm. NEUROLOGIC: Awake, alert, and oriented x3. LABORATORY: CBC is unremarkable. D-dimer is less than 131, fibrinogen of 355. Electrolytes are within normal limits. C-reactive protein 0.9. Liver enzymes within normal limits. RADIOLOGY: Chest CT shows: 1. Unchanged 2.5 cm right lower lobe mass. 2. Chronic lung changes and/or interstitial edema. Imaging features are atypical or uncommonly reported for Covid-19 pneumonia. Alternative diagnosis should be considered. ASSESSMENT: 1. Covid-19 pneumonitis with exertional hypoxia. 2. Nausea and vomiting with epigastric pain, improved. 3. Chronic obstructive pulmonary disease with mild exacerbation secondary to #1. 4. Chronic epigastric pain of unknown etiology. 5. Chronic pain syndrome. 6. Rheumatoid arthritis. 7. Unchanged right lower lobe pulmonary nodule that is 2.5 cm. 8. Gastroesophageal reflux disease. PLAN: We will continue present supportive care to include the Covid-19 guidelines for the medications. We will continue with aggressive pulmonary hygiene. She has improved quite well clinically and her lab is stable. Hopefully, we can get an ambulation study in the next day or to see her discharge requirements, the patient does have oxygen at home, she may need to use it during the day. Otherwise, we will monitor her closely and treat as needed. #[id number] [facility]
== END 2020-05-05 15:46 | disposition home or self-care (01) | DRG 177 ==
LOC: ER 11:07 → MS 15:14 → UNDOADMOB 15:14 → OBSVTOIN 15:14
PROVIDERS: ADMIT Nurse Practitioner Acute Care; ATTEND Nurse Practitioner Family
PROC: BW211ZZ Computerized Tomography (CT Scan) of Abdomen and Pelvis using Low Osmolar Contrast (ICD-10-PCS; principal; 2020-05-03)
PROC: XW033E5 Introduction of Remdesivir Anti-infective into Peripheral Vein, Percutaneous Approach, New Technology Group 5 (ICD-10-PCS; 2020-05-03)
DX: U07.1 COVID-19 (principal); J12.89 Other viral pneumonia; J44.0 Chronic obstructive pulmonary disease with (acute) lower respiratory infection; J44.1 Chronic obstructive pulmonary disease with (acute) exacerbation; R09.02 Hypoxemia; K29.00 Acute gastritis without bleeding; G89.4 Chronic pain syndrome; R10.13 Epigastric pain; M06.9 Rheumatoid arthritis, unspecified; R91.1 Solitary pulmonary nodule; K21.9 Gastro-esophageal reflux disease without esophagitis; Z87.891 Personal history of nicotine dependence; G47.30 Sleep apnea, unspecified; Z79.891 Long term (current) use of opiate analgesic; Z88.0 Allergy status to penicillin; Z88.1 Allergy status to other antibiotic agents; Z88.8 Allergy status to other drugs, medicaments and biological substances; Z79.82 Long term (current) use of aspirin; Z79.899 Other long term (current) drug therapy